=== PATIENT | female | born 1960 | race Caucasian/White ===

== ENCOUNTER 2017-05-31 09:06 | Outpatient (RCR) | payer OTHER ==
[~2017-05-31 09:06] MED LIST: AC325T PO; AZIT500T2 PO; CLON2TAB3 PO; DOXY100C2 PO; LEVO175T5 PO; LVT.15T PO; METO25TA PO
[2017-05-31 09:36] LABS: BASOPHILS % (AUTO) 0 % (0-10); EOSINOPHILS # (AUTO) 0.2 10^3/uL (0.0-0.3); EOSINOPHILS % (AUTO) 2 % (0-10); HEMATOCRIT 41 % (35-52); HEMOGLOBIN 13.5 G/DL (11.5-16.0); LYMPHOCYTES # (AUTO) 1.8 X 10^3 (1.0-4.0); LYMPHOCYTES % (AUTO) 26 % (12-44); MEAN CORPUSCULAR HEMOGLOBIN 29 PG (25-34); MEAN CORPUSCULAR HGB CONC 33 G/DL (32-36); MEAN CORPUSCULAR VOLUME 89 FL (80-99); MEAN PLATELET VOLUME 10.7 FL (7.4-10.4); MONOCYTES # (AUTO) 0.4 X 10^3 (0.0-1.0); MONOCYTES % (AUTO) 6 % (0-12); NEUTROPHILS # (AUTO) 4.6 X 10^3 (1.8-7.8); NEUTROPHILS % (AUTO) 66 % (42-75); PLATELET COUNT 254 10^3/uL (130-400); RED BLOOD COUNT 4.67 10^6/uL (4.35-5.85); RED CELL DISTRIBUTION WIDTH 13.1 % (10.0-14.5)
[2017-05-31 09:59] LABS: ALANINE AMINOTRANSFERASE 17 U/L (0-55); ALBUMIN 4.3 GM/DL (3.2-4.5); ALKALINE PHOSPHATASE 67 U/L (40-136); BILIRUBIN,TOTAL 0.5 MG/DL (0.1-1.0); BUN/CREATININE RATIO 24; CALCIUM 8.7 MG/DL (8.5-10.1); CARBON DIOXIDE 22 MMOL/L (21-32); CHLORIDE 108 MMOL/L (98-107); CREATININE SERUM 0.79 MG/DL (0.60-1.30); GFR ESTIMATED > 60; GLUCOSE 93 MG/DL (70-105); POTASSIUM 4.2 MMOL/L (3.6-5.0); SODIUM 141 MMOL/L (135-145)
== END 2017-08-29 | disposition home or self-care (01) ==
LOC: ONC 09:06
PROVIDERS: ATTEND Internal Medicine Hematology & Oncology
DX: Z08 Encounter for follow-up examination after completed treatment for malignant neoplasm (principal); Z85.3 Personal history of malignant neoplasm of breast; I10 Essential (primary) hypertension; E03.9 Hypothyroidism, unspecified; F41.9 Anxiety disorder, unspecified; G47.30 Sleep apnea, unspecified; K76.0 Fatty (change of) liver, not elsewhere classified; R10.31 Right lower quadrant pain; M25.551 Pain in right hip; E66.9 Obesity, unspecified; Z68.33 Body mass index [BMI] 33.0-33.9, adult; Z90.12 Acquired absence of left breast and nipple; Z98.82 Breast implant status; Z79.899 Other long term (current) drug therapy
CPT/HCPCS: 36415; 80053; 85025; 99214

== ENCOUNTER 2018-01-16 21:00 | Outpatient (CLI) | payer OTHER | END 2018-01-17 06:30 | disposition home or self-care (01) | LOC: SLEEP 21:00 | PROVIDERS: ATTEND Nurse Practitioner Family | DX: G47.33 Obstructive sleep apnea (adult) (pediatric) (principal); G47.50 Parasomnia, unspecified; G47.10 Hypersomnia, unspecified; R06.02 Shortness of breath; Z78.9 Other specified health status | CPT/HCPCS: 95811 ==

== ENCOUNTER → 2018-03-20 | Outpatient (CLI) | payer OTHER ==
[2018-03-20 09:30] LABS: BASOPHILS % (AUTO) 1 % (0-10); EOSINOPHILS # (AUTO) 0.2 10^3/uL (0.0-0.3); EOSINOPHILS % (AUTO) 3 % (0-10); HEMATOCRIT 42 % (35-52); HEMOGLOBIN 13.5 G/DL (11.5-16.0); LYMPHOCYTES # (AUTO) 1.6 X 10^3 (1.0-4.0); LYMPHOCYTES % (AUTO) 27 % (12-44); MEAN CORPUSCULAR HEMOGLOBIN 29 PG (25-34); MEAN CORPUSCULAR HGB CONC 32 G/DL (32-36); MEAN CORPUSCULAR VOLUME 88 FL (80-99); MEAN PLATELET VOLUME 11.1 FL (7.4-10.4); MONOCYTES # (AUTO) 0.4 X 10^3 (0.0-1.0); MONOCYTES % (AUTO) 7 % (0-12); NEUTROPHILS # (AUTO) 3.6 X 10^3 (1.8-7.8); NEUTROPHILS % (AUTO) 62 % (42-75); PLATELET COUNT 225 10^3/uL (130-400); RED BLOOD COUNT 4.74 10^6/uL (4.35-5.85); RED CELL DISTRIBUTION WIDTH 13.1 % (10.0-14.5); WHITE BLOOD COUNT 5.8 10^3/uL (4.3-11.0)
[2018-03-20 09:50] LABS: ALANINE AMINOTRANSFERASE 18 U/L (0-55); ALBUMIN 4.4 GM/DL (3.2-4.5); ALKALINE PHOSPHATASE 71 U/L (40-136); BILIRUBIN,TOTAL 0.7 MG/DL (0.1-1.0); BUN/CREATININE RATIO 16; CALCIUM 9.4 MG/DL (8.5-10.1); CARBON DIOXIDE 23 MMOL/L (21-32); CHLORIDE 107 MMOL/L (98-107); CREATININE SERUM 0.81 MG/DL (0.60-1.30); GFR ESTIMATED > 60; GLUCOSE 95 MG/DL (70-105); MAGNESIUM 2.5 MG/DL (1.8-2.4); PHOSPHORUS 3.5 MG/DL (2.3-4.7); POTASSIUM 4.1 MMOL/L (3.6-5.0); SODIUM 141 MMOL/L (135-145); TOTAL PROTEIN 7.4 GM/DL (6.4-8.2)
[2018-03-20 10:11] LABS: FREE T4 (FREE THYROXINE) 0.99 NG/DL (0.70-1.48)
== END ==
LOC: LAB 09:08
PROVIDERS: ATTEND Nurse Practitioner Family
DX: G47.10 Hypersomnia, unspecified (principal); G47.50 Parasomnia, unspecified; R06.02 Shortness of breath; E66.9 Obesity, unspecified; F41.9 Anxiety disorder, unspecified; F39 Unspecified mood [affective] disorder; G47.30 Sleep apnea, unspecified
CPT/HCPCS: 36415; 80053; 83735; 84100; 84439; 84443; 84481; 85025

== ENCOUNTER 2018-05-30 09:14 | Outpatient (RCR) | payer OTHER ==
[2018-05-29 09:40] LABS: BASOPHILS % (AUTO) 0 % (0-10); EOSINOPHILS # (AUTO) 0.2 10^3/uL (0.0-0.3); EOSINOPHILS % (AUTO) 3 % (0-10); HEMATOCRIT 40 % (35-52); HEMOGLOBIN 13.2 G/DL (11.5-16.0); LYMPHOCYTES # (AUTO) 1.7 X 10^3 (1.0-4.0); LYMPHOCYTES % (AUTO) 29 % (12-44); MEAN CORPUSCULAR HEMOGLOBIN 29 PG (25-34); MEAN CORPUSCULAR HGB CONC 33 G/DL (32-36); MEAN CORPUSCULAR VOLUME 88 FL (80-99); MEAN PLATELET VOLUME 10.7 FL (7.4-10.4); MONOCYTES # (AUTO) 0.4 X 10^3 (0.0-1.0); MONOCYTES % (AUTO) 6 % (0-12); NEUTROPHILS # (AUTO) 3.7 X 10^3 (1.8-7.8); NEUTROPHILS % (AUTO) 62 % (42-75); PLATELET COUNT 246 10^3/uL (130-400); RED CELL DISTRIBUTION WIDTH 13.4 % (10.0-14.5)
[2018-05-29 10:02] LABS: ALANINE AMINOTRANSFERASE 19 U/L (0-55); ALBUMIN 4.1 GM/DL (3.2-4.5); ALKALINE PHOSPHATASE 67 U/L (40-136); BILIRUBIN,TOTAL 0.7 MG/DL (0.1-1.0); BUN/CREATININE RATIO 22; CARBON DIOXIDE 19 MMOL/L (21-32); CHLORIDE 109 MMOL/L (98-107); CREATININE SERUM 0.89 MG/DL (0.60-1.30); GFR ESTIMATED > 60; GLUCOSE 172 MG/DL (70-105); POTASSIUM 3.9 MMOL/L (3.6-5.0); SODIUM 141 MMOL/L (135-145); TOTAL PROTEIN 7.3 GM/DL (6.4-8.2)
[2018-06-12] MEDS ORDERED: SERT100T8 PO (11:58)
[2018-06-12] MEDS ORDERED: LISI-552 PO (11:58)
[2018-06-12] MEDS ORDERED: LEVO150T6 PO (11:58)
[2018-06-13] MEDS ORDERED: HYDR-3816 PO (09:39)
[2018-06-13] MEDS ORDERED: morphine INJ 10 MG/ML 1ML (SYR OR VIAL) ONE (13:09)
== END 2018-08-27 | disposition home or self-care (01) ==
LOC: ONC 09:14
PROVIDERS: ATTEND Internal Medicine Hematology & Oncology
DX: Z08 Encounter for follow-up examination after completed treatment for malignant neoplasm (principal); Z85.3 Personal history of malignant neoplasm of breast; I10 Essential (primary) hypertension; E03.9 Hypothyroidism, unspecified; F41.9 Anxiety disorder, unspecified; G47.30 Sleep apnea, unspecified; Z90.12 Acquired absence of left breast and nipple; Z98.82 Breast implant status; Z79.899 Other long term (current) drug therapy
CPT/HCPCS: 36415; 80053; 85025; 99213

== ENCOUNTER 2018-06-12 06:11 | Outpatient (CLI) | payer OTHER ==
[~2018-06-12] VITALS: Ht 162.6 cm; Wt 88.9 kg
[2018-06-12] MEDS ORDERED: LEVO150T6 PO (11:58)
[2018-06-12] MEDS ORDERED: LISI-552 PO (11:58)
[2018-06-12] MEDS ORDERED: SERT100T8 PO (11:58)
[2018-06-13] MEDS ORDERED: HYDR-3816 PO (09:39)
== END 2018-06-12 11:59 ==
LOC: PREOP 06:11
PROVIDERS: ATTEND Surgery
DX: Z01.818 Encounter for other preprocedural examination (principal)

== ENCOUNTER 2018-06-13 09:29 | Day surgery (SDC) | payer OTHER ==
[~2018-06-13] VITALS: Ht 162.6 cm; Wt 88.9 kg
[~2018-06-13 09:29] MED LIST changes: +LEVO150T6 PO; +LISI-552 PO; +SERT100T8 PO
--- OUTSIDE RECORDS SUMMARY | 2018-06-13 09:32 | XMS REPORT | Clinical Summary ---
Author Author [facility] Organization [facility] Address Unknown Phone Unavailable Care Team Providers Care Manager Branch Name Role Phone Ervin Kitchen MD Unavailable Moises Duron MD Unavailable Unavailable Monty Perdomo MD PCP Renée Tellez MD Unavailable Quinton Petersen MD Unavailable Shruthi Morrow RN Unavailable Unavailable Source Comments Some departments are not documenting in the electronic medical record. If you do not see the information that you expected, contact Release of Information in the Health Information Management department at [phone] for further assistance in locating additional records.[facility] Allergies No Known Allergies Medications End Date Status Medication Sig Dispensed Refills Start Date Active levothyroxine (SYNTHROID) Take 150 mcg 0 150 mcg tablet by mouth daily. Active DULoxetine DR (CYMBALTA) Take 60 mg by 0 60 mg capsule mouth daily. Active metoprolol XL (TOPROL XL) Take 150 mg 0 50 mg tablet by mouth every morning. Active rOPINIRole (REQUIP) 1 mg Take 2 mg by 0 tablet mouth daily. Takes 2 tabs in the afternoon Active ergocalciferol (VITAMIN Take 50,000 0 D-2) 50,000 unit capsule Units by mouth every 7 days. Takes on Sundays Active DULoxetine DR (CYMBALTA) Take 1 Cap by 30 Cap 5 11/05/201 30 mg capsuleIndications: mouth daily. 3 Fibromyalgia Active Armodafinil (NUVIGIL) 150 Take 1 Tab by 30 Tab 5 06/05/201 mg tab mouth daily. 4 Active Problems Problem Noted Date Daytime hypersomnolence 02/20/2013 Overview: June 2010: MSLT mean latency of 11 minutes, 1 REM onset nap in the 5th nap Hypnopompic auditory and visual hallucinations, no cataplexy, no sleep paralysis L ast Assessment & Plan: -Consider repeat MSLT but due to financial reasons she declined -I discussed that aside from narcolepsy, severe depression could be contributing to her nightmares and other sensory phenomena at nighttime as well as her EDS/fatigue -Need to ensure adequate control of her ARY, requested download from [facility] today for review. May need a trial of auto-adjusting machine to determine ideal pressure. -Needs full face mask instead of nasal mask, she is wanting to possibly change DME companies and will find out which one her insurance will cover close to where she lives -modafinil seemed to work for short periods at higher doses, so I recommended Nuvigil 150 mg, start half a tablet, watch for KAPLAN. We discussed other SE as well as alternatives. Discount card given. Chronic fatigue 02/20/2013 ARY on CPAP 02/20/2013 Overview: 2007: AHI 26, LSat 80%, CPAP 9 cm H20, REMlat 248 minutes, CAITLIN 35 minutes, PLMi 30, 179 pounds 2010 Done on CPAP 12 cm H20 PLMi 59, PLM arousal index 14, AHI 5 with LSat 90% on CPAP 12 cm H20, stages N1 34%, N2 52%, N3 7%, REM 7%. Arousal index 62. DME: [facility] in [place], [place], last download Apr 2013 Last Assessment & Plan: -Will find out local provider that insurance will pay for supplies and let us know what that company is -Needs full face mask -May need trial of auto-PAP Restless legs syndrome (RLS) 02/20/2013 Overview: Intense crawling in her thighs that goes into her hips. Ferritin 80 in February, ropinerole 2 mg at 2 PM, occasionally will take another one vs ibuprofen 800 mg Breaks through slightly every night Last Assessment & Plan: -Continue ropinerole 2 mg in the afternoon for now -Reassess at follow up Memory loss 02/20/2013 Hypothyroidism 02/20/2013 Overview: Does not have thyroid Fibromyalgia 02/20/2013 Last Assessment & Plan: -Cymbalta greatly improve her symptoms and mood; however, due to financial reasons she is afraid she might not be able to afford it. -I provided her a potential discount option through the [employer] for patient assistance -Consider TCA or Lexapro if needs alternative Cervical stenosis of spinal canal 12/14/2012 Overview: Dr. Duron did surgery for cervical disc Postoperative state 12/14/2012 Immunizations Name Dates Previously Given Next Due Pneumococcal Vaccine 12/15/2012 (23-[facility] Adult) Family History Medical History Relation Name Comments Hypertension Father Stroke Father Cancer Mother Hypertension Mother Relation Name Status Comments Father Mother Social History Date Tobacco Use Types Packs/Day Years Used Never Smoker Smokeless Tobacco: Never Used Alcohol Use Drinks/Week oz/Week Comments No Sex Assigned at Date Recorded Not on file Industry Job Start Date Occupation Not on file Not on file Not on file Travel End Travel History Travel Start No recent travel history available. Last Filed Vital Signs Time Taken Vital Sign Reading 06/05/2013 3:57 PM [employer]FORMAN[employer] IM[employer]OVEMENT CONSULTANT Blood Pressure 126/80 06/05/2013 3:57 PM [employer]MAN[employer] IM[employer]OVEMENT CONSULTANT Pulse 75 02/20/2013 11:26 AM [employer]MAN[employer] IM[employer]OV[employer] CONSULTANT Temperature 36.8 C (98.2 F) 06/05/2013 12:25 PM [employer]MAN[employer] IM[employer]OVEMENT CONSULTANT Respiratory Rate 18 12/15/2012 3:26 PM CDT Oxygen Saturation 95% - Inhaled Oxygen - Concentration 06/05/2013 3:57 PM [employer]MAN[employer] IM[employer]OVEMENT CONSULTANT Weight 95.3 kg (210 lb) 06/05/2013 3:57 PM [employer]FORMANCE IMPROVEMENT CONSULTANT Height 165.1 cm (5' 5") 06/05/2013 3:57 PM [employer]FORMANCE IMPROVEMENT CONSULTANT Body Mass Index 34.95 Plan of Treatment Health Maintenance Due Date Last Done Comments HEPATITIS C SCREENING 1959 PHYSICAL (COMPREHENSIVE) 09/13/1966 EXAM HIV SCREENING 09/13/1974 DTAP/TDAP VACCINES (1 - 09/13/1977 Tdap) CERVICAL CANCER SCREENING 09/13/1989 BREAST CANCER SCREENING 1999 COLORECTAL CANCER 09/13/2009 SCREENING SHINGLES RECOMBINANT 09/13/2009 VACCINE (1 of 2) INFLUENZA VACCINE 11/16/2017 Results Not on filefrom Last 3 Months Insurance Payer Benefit Subscriber ID Type Phone Address Plan / Group CIGNA CIGNA NON xxxxxxxxxxx HMO PPO/EPO Advance Directives Patient has advance care planning documents, and code status on file. For more information, please contact: [facility] [address] [place] [address] Date Inactivated Comments Code Status Date Activated 12/15/2012 7:53 PM Full Code 12/14/2012 10:25 AM Provider has discussed Code Status No, discussion not w/Patient or Family? necessary based on Dx
--- OUTSIDE RECORDS SUMMARY | 2018-06-13 09:33 | XMS REPORT ---
Author Author OLIVIA ROSA [facility] Address [address] [place] [address] Care Team Providers Care Window Trimmer Apprentice Name Role Phone OLIVIA ROSA Unavailable PROBLEMS Type Condition ICD9-CM Code [id number] Code Onset Dates Condition Status SNOMED Code Problem Depression F32.9 Active 49053927 Problem Dysthymic disorder F34.1 Active 12974622 Problem Hypertension I10 Active 34428474 Problem S/P bilateral mastectomy Z90.13 Active 530117567 Problem IBS (irritable bowel syndrome) K58.9 Active 03311266 Problem Sleep apnea G47.30 Active 73371920 Problem Arthritis, lumbar spine M46.96 Active 245080372 Problem Restless leg G25.81 Active 54630331 Problem Acquired hypothyroidism E03.9 Active 257032092 Problem Anxiety F41.9 Active 18595523 Problem Chronic fatigue R53.82 Active 71391109 Problem Postoperative hypothyroidism E89.0 Active 00333500 ALLERGIES No Information ENCOUNTERS Encounter Location Date Diagnosis [place] [address] [place] [address]44- 6248 Jul, Acquired hypothyroidism E03.9 and Fatigue, unspecified type R53.83 [facility] [address] [place] [address] 10238- 5365 Jul, Postoperative hypothyroidism E89.0 [facility] [address] [place] [id number] [place] [address] 21294- 8279 Jul, Postoperative hypothyroidism E89.0 [facility] [address] [place] [address] 90353- 8314 Jun, [facility] [address] [place] [address] 18928- 2728 Jun, Acquired hypothyroidism E03.9 [place] [address] [place] [id number] [place] [address] 97097- 6286 08 Jun, 2017 Arthritis, lumbar spine M46.96 and Acquired hypothyroidism E03.9 [facility] [address] [place] [address] [id number] [place] [address] 75372- 8689 Jun, [facility] [id number] [place] [address] 22534- 2000 Jun, Acquired hypothyroidism E03.9 [facility] [address] [place] [id number] [place] [address] 42619- 5262 Mar, Acquired hypothyroidism E03.9 [facility] [address] [address] [id number] [place] [address] 38170- 5960 Mar, Acquired hypothyroidism E03.9 [facility] [id number] [place] [address] 50062- 3408 Mar, [facility] [id number] [place] [address] 50986- 6053 Nov, [facility] [address] [id number] [place] [address] 04112- 3723 Nov, Low vitamin B12 level E53.8 [facility] [address] [place] [id number] [place] [address] 87160- 8373 Nov, Low vitamin B12 level E53.8 [facility] [address] [id number] [place] [address] 21135- 3914 Nov, Chronic fatigue R53.82 ; Restless leg G25.81 and Postoperative hypothyroidism E89.0 [facility] [address] [place] [id number] [place] [address] 86999- 1826 Nov, [facility] [address] [id number] [place] [address] 64892- 2279 Oct, [facility] [address] [place] [id number] [place] [address] 71571- 3169 Oct, Acquired hypothyroidism E03.9 [facility] [id number] [place] [address] 61750- 5495 Oct, [place] [address] [place] [id number] [place] [address] 39879- 8606 Jun, RLQ abdominal pain R10.31 [place] [address] [place] [phone]- 6364 Jun, Sleep apnea G47.30 ; Rash R21 ; RLQ abdominal pain R10.31 and Postoperative hypothyroidism E89.0 [place] [address] 70711- 6946 May, Acquired hypothyroidism E03.9 [place] [address] 536150- 2456 May, [place] [address] 41809- 8302 May, Acquired hypothyroidism E03.9 [place] [address] 37760- 9350 Mar, Acquired hypothyroidism E03.9 [place] [address] [place] [id number] [place] [address] 87500- 4710 Mar, Hypertension I10 ; Acquired hypothyroidism E03.9 ; Depression F32.9 ; Anxiety F41.9 ; Sleep apnea G47.30 ; Dysuria R30.0 and Other fatigue R53.83 [place] [address] [place] [id number] [place] [address] 46651- 1199 Feb, [place] [address] 77958- 5565 August, Dysthymic disorder F34.1 ; Depression F32.9 and Sleep apnea G47.30 [place] [address] 40788- 5631 Jun, Dysthymic disorder F34.1 [place] [address] [place] [id number] [place] [address] 13125- 2756 Jun, Dysthymic disorder F34.1 [facility] [address] [facility] [id number] [address] Jun, Anxiety F41.9 ; Depression F32.9 and Sleep apnea G47.30 [facility] [address] [facility] [id number], [place] [address] 8187 Jun, Flank pain R10.9 ; Hematuria R31.9 ; Depression F32.9 ; Hypertension I10 and Sleep apnea G47.30 [facility] [address] [facility] [id number], [place] [address] Jun, Dysthymic disorder F34.1 IMMUNIZATIONS No Known Immunizations SOCIAL HISTORY Never Assessed REASON FOR VISIT Lab PLAN OF CARE VITAL SIGNS MEDICATIONS Unknown Medications RESULTS No Results PROCEDURES No Known procedures INSTRUCTIONS MEDICATIONS ADMINISTERED No Known Medications MEDICAL (GENERAL) HISTORY Type Description Date Medical History hypertension Medical History thyroid disease; pt has had thyroidectomy Medical History depression/anxiety Medical History hx of breast cancer/double mastectomy/chemotherapy Medical History fibromyalgia Medical History ruptured disk in cervical region; had surgery at Medical History IBS Surgical History thyroidectomy Surgical History cervical disc repair Surgical History hysterectomy Surgical History double mastectomy Surgical History multiple breast reconstructive surgery Surgical History colonoscopy 05/2015 Hospitalization History multiple hospitalizations r/t cancer and surgeries
--- OUTSIDE RECORDS SUMMARY | 2018-06-13 09:33 | XMS REPORT ---
Author Author ANGELLA ORELLANA [facility] Address [address] [place] [address] Care Team Providers Care Confectionery Laboratory Manager Name Role Phone ANGELLA ORELLANA Unavailable PROBLEMS Type Condition ICD9-CM Code [id number] Code Onset Dates Condition Status SNOMED Code Problem Depression F32.9 Active 52883987 Problem Dysthymic disorder F34.1 Active 49259223 Problem Hypertension I10 Active 15430454 Problem S/P bilateral mastectomy Z90.13 Active 939830195 Problem IBS (irritable bowel syndrome) K58.9 Active 77601798 Problem Sleep apnea G47.30 Active 60040663 Problem Arthritis, lumbar spine M46.96 Active 563585222 Problem Restless leg G25.81 Active 36132302 Problem Acquired hypothyroidism E03.9 Active 401673829 Problem Anxiety F41.9 Active 16982595 Problem Chronic fatigue R53.82 Active 41325182 Problem Postoperative hypothyroidism E89.0 Active 19589457 ALLERGIES No Information ENCOUNTERS Encounter Location Date Diagnosis [place] [address] [place] [id number] [place] [address] 83228- 4459 Nov, Acquired hypothyroidism E03.9 [place] [address] [place] [id number] [place] [address] 04392- 7136 Jul, Acquired hypothyroidism E03.9 and Fatigue, unspecified type R53.83 [place] [address] [place] [address] 12749- 0128 Jul, Postoperative hypothyroidism E89.0 [place] [address] [place] [id number] [place] [address] 28895- 7088 Jul, Postoperative hypothyroidism E89.0 [place] [address] [place] [id number] [place] [address] 14791- 1421 Jun, [place] [address] [place] [id number] [place] [address] 55217- 3611 Jun, Acquired hypothyroidism E03.9 [facility] [address] [place] [id number] [place] [address] 22081- 4928 Jun, Arthritis, lumbar spine M46.96 and Acquired hypothyroidism E03.9 [facility] [address] [place] [id number] [place] [address] 65140- 9523 Jun, [facility] [address] 25953- 4539 Jun, Acquired hypothyroidism E03.9 [facility] [address] 82605- 7643 Mar, Acquired hypothyroidism E03.9 [facility] [address] [place] [id number] [place] [address] 56148- 1223 Mar, Acquired hypothyroidism E03.9 [facility] [address] 44583- 1864 Mar, [facility] [address] [place] [id number] [place] [address] 03600- 5566 Nov, [facility] [address] [place] [id number] [place] [address] 69666- 2198 Nov, Low vitamin B12 level E53.8 [facility] [address] [place] [id number] [place] [address] 15202- 9277 Nov, Low vitamin B12 level E53.8 [facility] [address] [place] [id number] [place] [address] 57683- 2205 Nov, Chronic fatigue R53.82 ; Restless leg G25.81 and Postoperative hypothyroidism E89.0 [facility] [address] [place] [id number] [place] [address] 38159- 2255 Nov, [facility] [address] [place] [id number] [place] [address] 13652- 7711 Oct, [facility] [address] [place] [address]- 8250 Oct, Acquired hypothyroidism E03.9 [place] [address] 79520- 4341 Oct, [facility] [address] [place] [id number]- 8849 Jun, RLQ abdominal pain R10.31 [facility] [address] 60896- 9959 Jun, Sleep apnea G47.30 ; Rash R21 ; RLQ abdominal pain R10.31 and Postoperative hypothyroidism E89.0 [place] [address] 36784- 1457 May, Acquired hypothyroidism E03.9 [place] [address] 62582- 2909 May, [place] [address] 40563- 9043 May, Acquired hypothyroidism E03.9 [place] [address] 44645- 1714 Mar, Acquired hypothyroidism E03.9 [place] [address] 01546- 2492 Mar, Hypertension I10 ; Acquired hypothyroidism E03.9 ; Depression F32.9 ; Anxiety F41.9 ; Sleep apnea G47.30 ; Dysuria R30.0 and Other fatigue R53.83 [place] [address] [place] [id number] [place] [address] 61843- 0714 Feb, [place] [address] [place] [id number]- 4633 August, Dysthymic disorder F34.1 ; Depression F32.9 and Sleep apnea G47.30 [place] [address] 64500- 4514 Jun, Dysthymic disorder F34.1 [facility] [address] [place] [id number] [address]- 6222 Jun, Dysthymic disorder F34.1 [facility] [address] [address]- 2491 Jun, Anxiety F41.9 ; Depression F32.9 and Sleep apnea G47.30 [place] [address] [place] [address] 28926- 6416 Jun, Flank pain R10.9 ; Hematuria R31.9 ; Depression F32.9 ; Hypertension I10 and Sleep apnea G47.30 [place] [address] [address]- 3743 Jun, Dysthymic disorder F34.1 IMMUNIZATIONS No Known Immunizations SOCIAL HISTORY Never Assessed REASON FOR VISIT Medication question PLAN OF CARE VITAL SIGNS MEDICATIONS Unknown Medications RESULTS No Results PROCEDURES No Known procedures INSTRUCTIONS MEDICATIONS ADMINISTERED No Known Medications MEDICAL (GENERAL) HISTORY Type Description Date Medical History hypertension Medical History thyroid disease; pt has had thyroidectomy Medical History depression/anxiety Medical History hx of breast cancer/double mastectomy/chemotherapy Medical History fibromyalgia Medical History ruptured disk in cervical region; had surgery at [facility] Medical History IBS Surgical History thyroidectomy Surgical History cervical disc repair Surgical History hysterectomy Surgical History double mastectomy Surgical History multiple breast reconstructive surgery Surgical History colonoscopy 05/2015 Hospitalization History multiple hospitalizations r/t cancer and surgeries
--- OUTSIDE RECORDS SUMMARY | 2018-06-13 09:33 | XMS REPORT ---
Author Author ANGELLA ORELLANA [facility] Address [address] [place] [address] Care Team Providers Care Outdoor Illuminating Engineer Name Role Phone ANGELLA ORELLANA Unavailable PROBLEMS Type Condition ICD9-CM Code QNC68-OJ Code Onset Dates Condition Status SNOMED Code Problem Depression F32.9 Active 52987874 Problem Dysthymic disorder F34.1 Active 58622574 Problem Hypertension I10 Active 40530246 Problem S/P bilateral mastectomy Z90.13 Active 524246050 Problem IBS (irritable bowel syndrome) K58.9 Active 56424257 Problem Sleep apnea G47.30 Active 04685806 Problem Arthritis, lumbar spine M46.96 Active 467681449 Problem Restless leg G25.81 Active 07416914 Problem Acquired hypothyroidism E03.9 Active 326697495 Problem Anxiety F41.9 Active 47569610 Problem Chronic fatigue R53.82 Active 28142749 Problem Postoperative hypothyroidism E89.0 Active 95387968 ALLERGIES No Information ENCOUNTERS Encounter Location Date Diagnosis [place] [address] [place] [address] 64580- 6849 Jul, Acquired hypothyroidism E03.9 and Fatigue, unspecified type R53.83 [place] [address] [place] [id number] [place] [address] 12085- 3126 Jul, Postoperative hypothyroidism E89.0 [place] [address] [place] [id number] [place] [address] 61552- 2488 Jul, Postoperative hypothyroidism E89.0 [place] [address] [place] [id number] [place] [address] 66353- 2880 Jun, [place] [address] [place] [id number] [place] [address] 57025- 8914 Jun, Acquired hypothyroidism E03.9 [place] [address] [place] [id number] [place] [address] 66015- 3308 08 Jun, 2017 Arthritis, lumbar spine M46.96 and Acquired hypothyroidism E03.9 [facility] [address] [place] [id number] [place] [address] 66632- 8329 Jun, [facility] [address] [place] [address] [id number] [place] [address] 35521- 5013 Jun, Acquired hypothyroidism E03.9 [facility] [address] [place] [id number] [place] [address] 39332- 2460 Mar, Acquired hypothyroidism E03.9 [facility] [address] 56343- 0225 Mar, Acquired hypothyroidism E03.9 [facility] [address] [place] [id number] [place] [address] 88665- 3207 Mar, [facility] [address] 55889- 9927 Nov, [facility] [address] [place] [id number] [place] [address] 64568- 3848 Nov, Low vitamin B12 level E53.8 [facility] [address] [place] [id number] [place] [address] 19062- 2775 Nov, Low vitamin B12 level E53.8 [facility] [address] [place] [id number] [place] [address] 74845- 8514 Nov, Chronic fatigue R53.82 ; Restless leg G25.81 and Postoperative hypothyroidism E89.0 [facility] [address] [place] [address] [id number] [place] [address] 43239- 0946 Nov, [facility] [address] [place] [id number] [place] [address] 44523- 3612 Oct, [facility] [address] [place] [id number] [place] [address] 62966- 0566 Oct, Acquired hypothyroidism E03.9 [facility] [address] [place] [address]- 6503 Oct, [place] [address] 09485- 2237 Jun, RLQ abdominal pain R10.31 [place] [address] 65659- 5621 Jun, Sleep apnea G47.30 ; Rash R21 ; RLQ abdominal pain R10.31 and Postoperative hypothyroidism E89.0 [place] [address] 33486- 0842 May, Acquired hypothyroidism E03.9 [place] [address] 15540- 4879 May, [place] [address] 71626- 3100 May, Acquired hypothyroidism E03.9 [place] [address] 51782- 6220 Mar, Acquired hypothyroidism E03.9 [place] [address] 54426- 4895 Mar, Hypertension I10 ; Acquired hypothyroidism E03.9 ; Depression F32.9 ; Anxiety F41.9 ; Sleep apnea G47.30 ; Dysuria R30.0 and Other fatigue R53.83 [place] [address] [place] [id number] [place] [address] 68719- 3803 Feb, [place] [address] 27774- 0466 August, Dysthymic disorder F34.1 ; Depression F32.9 and Sleep apnea G47.30 [place] [address] 12449- 6232 Jun, Dysthymic disorder F34.1 [place] [address] [place] [id number] [place] [address] 36011- 6896 Jun, Dysthymic disorder F34.1 [facility] [address] [facility] [id number] [address] 8857 Jun, Anxiety F41.9 ; Depression F32.9 and Sleep apnea G47.30 [facility] [address] [facility] [id number] [address] 5849 Jun, Flank pain R10.9 ; Hematuria R31.9 ; Depression F32.9 ; Hypertension I10 and Sleep apnea G47.30 [facility] [address] [facility] [id number], [place] [address]- 6812 Jun, Dysthymic disorder F34.1 IMMUNIZATIONS No Known Immunizations SOCIAL HISTORY Never Assessed REASON FOR VISIT Lab (walk-in) PLAN OF CARE Activity Details Future/Pending Procedure ROUTINE VENIPUNCTURE VITAL SIGNS MEDICATIONS Unknown Medications RESULTS Name Result Date Reference Range TSH w/ FREE T4 2017-08-05 TSH 5.00 0.40-4.50 T4, FREE 1.3 0.8-1.8 PROCEDURES Procedure Date Ordered Result Body Site LAB NOT BILLED BY [facility] August 05, 2017 VENIPUNCT, ROUTINE* August 05, 2017 INSTRUCTIONS MEDICATIONS ADMINISTERED No Known Medications MEDICAL [...]
--- OUTSIDE RECORDS SUMMARY | 2018-06-13 09:33 | XMS REPORT ---
Author Author ANGELLA ORELLANA [facility] Address [address] [place] [address] Care Team Providers Care Manager Water Wastewater Name Role Phone ANGELLA ORELLANA Unavailable PROBLEMS Type Condition ICD9-CM Code [id number] Code Onset Dates Condition Status SNOMED Code Problem Depression F32.9 Active 08843515 Problem Dysthymic disorder F34.1 Active 68587074 Problem Hypertension I10 Active 36133952 Problem S/P bilateral mastectomy Z90.13 Active 019531917 Problem IBS (irritable bowel syndrome) K58.9 Active 55745212 Problem Sleep apnea G47.30 Active 10186486 Problem Arthritis, lumbar spine M46.96 Active 079680702 Problem Restless leg G25.81 Active 03547257 Problem Acquired hypothyroidism E03.9 Active 882069291 Problem Anxiety F41.9 Active 59884515 Problem Chronic fatigue R53.82 Active 22434164 Problem Postoperative hypothyroidism E89.0 Active 33251728 ALLERGIES No Information ENCOUNTERS Encounter Location Date Diagnosis [place] [address] [place] [address] 19694- 4573 Jul, Acquired hypothyroidism E03.9 and Fatigue, unspecified type R53.83 [place] [address] [place] [id number] [place] [address] 00328- 5643 Jul, Postoperative hypothyroidism E89.0 [place] [address] [place] [id number] [place] [address] 44243- 1516 Jul, Postoperative hypothyroidism E89.0 [place] [address] [place] [id number] [place] [address] 95780- 2819 Jun, [place] [address] [place] [id number] [place] [address] 61493- 5075 Jun, Acquired hypothyroidism E03.9 [place] [address] [place] [id number] [place] [address] 92875- 1059 08 Jun, 2017 Arthritis, lumbar spine M46.96 and Acquired hypothyroidism E03.9 [facility] [address] [place] [id number] [place] [address] 07452- 5102 Jun, [facility] [address] [place] [id number] [place] [address] 64392- 0684 Jun, Acquired hypothyroidism E03.9 [facility] [address] [place] [id number] [place] [address] 46978- 3411 Mar, Acquired hypothyroidism E03.9 [facility] [address] 54544- 8608 Mar, Acquired hypothyroidism E03.9 [facility] [address] [place] [id number] [place] [address] 63422- 1727 Mar, [facility] [address] 52767- 3934 Nov, [facility] [address] [place] [id number] [place] [address] 44888- 8041 Nov, Low vitamin B12 level E53.8 [facility] [address] [place] [id number] [place] [address] 01166- 3413 Nov, Low vitamin B12 level E53.8 [facility] [address] [place] [id number] [place] [address] 89813- 7852 Nov, Chronic fatigue R53.82 ; Restless leg G25.81 and Postoperative hypothyroidism E89.0 [facility] [address] [place] [id number] [place] [address] 68937- 9127 Nov, [facility] [address] [place] [id number] [place] [address] 87848- 0246 Oct, [facility] [address] [place] [id number] [place] [address] 90956- 2096 Oct, Acquired hypothyroidism E03.9 [facility] [address] [place] [address]- 9408 Oct, [place] [address] 99454- 4914 Jun, RLQ abdominal pain R10.31 [place] [address] 65425- 9843 Jun, Sleep apnea G47.30 ; Rash R21 ; RLQ abdominal pain R10.31 and Postoperative hypothyroidism E89.0 [place] [address] 61722- 3361 May, Acquired hypothyroidism E03.9 [place] [address] 34787- 6158 May, [place] [address] 64433- 0828 May, Acquired hypothyroidism E03.9 [place] [address] 52979- 7606 Mar, Acquired hypothyroidism E03.9 [place] [address] 37274- 4825 Mar, Hypertension I10 ; Acquired hypothyroidism E03.9 ; Depression F32.9 ; Anxiety F41.9 ; Sleep apnea G47.30 ; Dysuria R30.0 and Other fatigue R53.83 [place] [address] [place] [id number] [place] [address] 01352- 1641 Feb, [place] [address] 16905- 9377 August, Dysthymic disorder F34.1 ; Depression F32.9 and Sleep apnea G47.30 [place] [address] 57831- 2160 Jun, Dysthymic disorder F34.1 [place] [address] [place] [id number] [place] [address] 16225- 9744 Jun, Dysthymic disorder F34.1 [facility] [address] [facility] [id number], [place] [address]- 2985 Jun, Anxiety F41.9 ; Depression F32.9 and Sleep apnea G47.30 [facility] [address] [facility] [id number], [place] [address]- 7907 Jun, Flank pain R10.9 ; Hematuria R31.9 ; Depression F32.9 ; Hypertension I10 and Sleep apnea G47.30 [facility] [address] [facility] [id number], [place] [address]- 2017 Jun, Dysthymic disorder F34.1 IMMUNIZATIONS No Known Immunizations SOCIAL HISTORY Never Assessed REASON FOR VISIT Lab (walk-in) PLAN OF CARE VITAL SIGNS MEDICATIONS Unknown Medications RESULTS Name Result Date Reference Range TSH 2017-06-17 TSH 10.18 0.40-4.50 T4 FREE 2017-06-17 T4, FREE 1.0 0.8-1.8 PROCEDURES Procedure Date Ordered Result Body Site LAB NOT BILLED BY [facility] June 17, 2017 VENIPUNCT, ROUTINE* June 17, 2017 INSTRUCTIONS MEDICATIONS ADMINISTERED No Known Medications [...]
--- OUTSIDE RECORDS SUMMARY | 2018-06-13 09:33 | XMS REPORT ---
Author Author ANGELLA ORELLANA [facility] Address [address] [place] [address] Care Team Providers Care Hand Mounter Name Role Phone ANGELLA ORELLANA Unavailable PROBLEMS Type Condition ICD9-CM Code EWP34-ME Code Onset Dates Condition Status SNOMED Code Problem Depression F32.9 Active 07480995 Problem Dysthymic disorder F34.1 Active 32363916 Problem Hypertension I10 Active 66102837 Problem S/P bilateral mastectomy Z90.13 Active 202890516 Problem IBS (irritable bowel syndrome) K58.9 Active 42737288 Problem Sleep apnea G47.30 Active 59571679 Problem Arthritis, lumbar spine M46.96 Active 237553751 Problem Restless leg G25.81 Active 20083395 Problem Acquired hypothyroidism E03.9 Active 023277446 Problem Anxiety F41.9 Active 76608117 Problem Chronic fatigue R53.82 Active 73634116 Problem Postoperative hypothyroidism E89.0 Active 22138450 ALLERGIES No Information ENCOUNTERS Encounter Location Date Diagnosis [place] [address] [place] [address] 43403- 1122 Jul, Acquired hypothyroidism E03.9 and Fatigue, unspecified type R53.83 [place] [address] [place] [id number] [place] [address] 51107- 9889 Jul, Postoperative hypothyroidism E89.0 [place] [address] [place] [id number] [place] [address] 92115- 3277 Jul, Postoperative hypothyroidism E89.0 [place] [address] [place] [id number] [place] [address] 44423- 7653 Jun, [place] [address] [place] [id number] [place] [address] 48111- 0943 Jun, Acquired hypothyroidism E03.9 [place] [address] [place] [id number] [place] [address] 48415- 5991 08 Jun, 2017 Arthritis, lumbar spine M46.96 and Acquired hypothyroidism E03.9 [facility] [address] [place] [id number] [place] [address] 39982- 8010 Jun, [facility] [address] [place] [id number] [place] [address] 28571- 2298 Jun, Acquired hypothyroidism E03.9 [facility] [address] [place] [id number] [place] [address] 54478- 7883 Mar, Acquired hypothyroidism E03.9 [facility] [address] 96358- 7215 Mar, Acquired hypothyroidism E03.9 [facility] [address] [place] [id number] [place] [address] 41388- 0947 Mar, [facility] [address] 67061- 3266 Nov, [facility] [address] [place] [id number] [place] [address] 03017- 1143 Nov, Low vitamin B12 level E53.8 [facility] [address] [place] [id number] [place] [address] 18827- 7312 Nov, Low vitamin B12 level E53.8 [facility] [address] [place] [id number] [place] [address] 94377- 4432 Nov, Chronic fatigue R53.82 ; Restless leg G25.81 and Postoperative hypothyroidism E89.0 [facility] [address] [place] [id number] [place] [address] 10487- 1552 Nov, [facility] [address] [place] [id number] [place] [address] 04402- 4156 Oct, [facility] [address] [place] [id number] [place] [address] 59957- 4196 Oct, Acquired hypothyroidism E03.9 [facility] [address] [place] [address]- 4259 Oct, [place] [address] 46006- 3724 Jun, RLQ abdominal pain R10.31 [place] [address] 86948- 5242 Jun, Sleep apnea G47.30 ; Rash R21 ; RLQ abdominal pain R10.31 and Postoperative hypothyroidism E89.0 [place] [address] 80618- 0770 May, Acquired hypothyroidism E03.9 [place] [address] 07702- 8596 May, [place] [address] 00576- 6454 May, Acquired hypothyroidism E03.9 [place] [address] 71647- 6297 Mar, Acquired hypothyroidism E03.9 [place] [address] 08045- 1623 Mar, Hypertension I10 ; Acquired hypothyroidism E03.9 ; Depression F32.9 ; Anxiety F41.9 ; Sleep apnea G47.30 ; Dysuria R30.0 and Other fatigue R53.83 [place] [address] [place] [id number] [place] [address] 30009- 8917 Feb, [place] [address] 52593- 9984 August, Dysthymic disorder F34.1 ; Depression F32.9 and Sleep apnea G47.30 [place] [address] 96213- 3517 Jun, Dysthymic disorder F34.1 [place] [address] [place] [id number] [place] [address] 08168- 7327 Jun, Dysthymic disorder F34.1 [facility] [address] [facility] [id number] [address]- 8731 Jun, Anxiety F41.9 ; Depression F32.9 and Sleep apnea G47.30 [facility] [address] [id number] [address]- 9902 Jun, Flank pain R10.9 ; Hematuria R31.9 ; Depression F32.9 ; Hypertension I10 and Sleep apnea G47.30 [facility] [address] [id number] [address]- 3741 Jun, Dysthymic disorder F34.1 IMMUNIZATIONS No Known Immunizations SOCIAL HISTORY Never Assessed REASON FOR VISIT Referral Request PLAN OF CARE VITAL SIGNS MEDICATIONS Unknown [...]
--- OUTSIDE RECORDS SUMMARY | 2018-06-13 09:33 | XMS REPORT ---
Author Author ANGELLA ORELLANA Organization [facility] [place] Address [address] [place] [address] Care Team Providers Care Truck Body Builder Apprentice Name Role Phone ANGELLA ORELLANA Unavailable PROBLEMS Type Condition ICD9-CM Code DIZ80-JE Code Onset Dates Condition Status SNOMED Code Problem Depression F32.9 Active 21354952 Problem Dysthymic disorder F34.1 Active 09134614 Problem Hypertension I10 Active 57648565 Problem S/P bilateral mastectomy Z90.13 Active 365839777 Problem IBS (irritable bowel syndrome) K58.9 Active 11264991 Problem Sleep apnea G47.30 Active 77166407 Problem Arthritis, lumbar spine M46.96 Active 911610111 Problem Restless leg G25.81 Active 88170704 Problem Acquired hypothyroidism E03.9 Active 767661854 Problem Anxiety F41.9 Active 73262588 Problem Chronic fatigue R53.82 Active 64508325 Problem Postoperative hypothyroidism E89.0 Active 01207080 ALLERGIES No Information ENCOUNTERS Encounter Location Date Diagnosis [place] [address] [place] [id number] [place] [address] 27651- 9302 Nov, Acquired hypothyroidism E03.9 [place] [address] [place] [id number] [place] [address] 69382- 6987 Jul, Acquired hypothyroidism E03.9 and Fatigue, unspecified type R53.83 [place] [address] [place] [address] 53402- 2971 Jul, Postoperative hypothyroidism E89.0 [place] [address] [place] [id number] [place] [address] 92845- 9895 Jul, Postoperative hypothyroidism E89.0 [place] [address] [place] [id number] [place] [address] 81760- 9438 Jun, [place] [address] [place] [id number] [place] [address] 50736- 4307 Jun, Acquired hypothyroidism E03.9 [facility] [place] [address] [place] [id number] [place] [address] 36729- 4587 Jun, Arthritis, lumbar spine M46.96 and Acquired hypothyroidism E03.9 [facility] [place] [address] [place] [id number] [place] [address] 31610- 1026 Jun, [facility] [place] [address] 36438- 5276 Jun, Acquired hypothyroidism E03.9 [facility] [place] [address] 63056- 7648 Mar, Acquired hypothyroidism E03.9 [facility] [place] [address] [place] [id number] [place] [address] 26735- 5688 Mar, Acquired hypothyroidism E03.9 [facility] [place] [address] 70099- 0894 Mar, [facility] [place] [address] [place] [id number] [place] [address] 28192- 8637 Nov, [facility] [place] [address] [place] [id number] [place] [address] 50680- 0032 Nov, Low vitamin B12 level E53.8 [facility] [place] [address] [place] [id number] [place] [address] 74854- 2492 Nov, Low vitamin B12 level E53.8 [facility] [place] [address] [place] [id number] [place] [address] 76463- 1425 Nov, Chronic fatigue R53.82 ; Restless leg G25.81 and Postoperative hypothyroidism E89.0 [facility] [place] [address] [place] [id number] [place] [address] 98787- 4970 Nov, [facility] [place] [address] [place] [id number] [place] [address] 31893- 0033 Oct, [facility] [place] [address] [place] [address]- 2095 Oct, Acquired hypothyroidism E03.9 [place] [address] 40610- 3038 Oct, [facility] [place] [address] [place] [id number]- 3075 Jun, RLQ abdominal pain R10.31 [facility] [place] [address] 70709- 8218 Jun, Sleep apnea G47.30 ; Rash R21 ; RLQ abdominal pain R10.31 and Postoperative hypothyroidism E89.0 [place] [address] 90450- 0303 May, Acquired hypothyroidism E03.9 [place] [address] 11612- 2826 May, [place] [address] 45491- 8108 May, Acquired hypothyroidism E03.9 [place] [address] 00009- 4300 Mar, Acquired hypothyroidism E03.9 [place] [address] 79291- 3431 Mar, Hypertension I10 ; Acquired hypothyroidism E03.9 ; Depression F32.9 ; Anxiety F41.9 ; Sleep apnea G47.30 ; Dysuria R30.0 and Other fatigue R53.83 [place] [address] [place] [id number] [place] [address] 67523- 8550 Feb, [place] [address] [place] [id number]- 8963 August, Dysthymic disorder F34.1 ; Depression F32.9 and Sleep apnea G47.30 [place] [address] 14775- 4819 Jun, Dysthymic disorder F34.1 [facility] [place] [address] [id number] [address]- 9465 Jun, Dysthymic disorder F34.1 [facility] [place] [address] [id number] [address]- 4460 Jun, Anxiety F41.9 ; Depression F32.9 and Sleep apnea G47.30 [place] [address] [place] [address] 32720- 1683 Jun, Flank pain R10.9 ; Hematuria R31.9 ; Depression F32.9 ; Hypertension I10 and Sleep apnea G47.30 [place] [address] [address]- 8486 Jun, Dysthymic disorder F34.1 IMMUNIZATIONS No Known Immunizations SOCIAL HISTORY Never Assessed REASON FOR VISIT Lab results/Referral Request PLAN OF CARE VITAL SIGNS MEDICATIONS Medication Instructions Dosage Frequency Start Date End Date Duration Status Synthroid 150 MCG Orally Once a day 1 tablet on an empty stomach in the morning 24h Nov, 30 days Active RESULTS No Results PROCEDURES No Known procedures [...]
--- OUTSIDE RECORDS SUMMARY | 2018-06-13 09:34 | XMS REPORT ---
Author Author ANGELLA ORELLANA [facility] Address [address] [place] [address] Care Team Providers Care Leaf Stripper Name Role Phone ANGELLA ORELLANA Unavailable PROBLEMS Type Condition ICD9-CM Code [id number] Code Onset Dates Condition Status SNOMED Code Problem Sleep apnea G47.30 Active 65238459 Problem Hypertension I10 Active 20596660 Problem Depression F32.9 Active 01541236 Problem IBS (irritable bowel syndrome) K58.9 Active 37332358 Problem Restless leg G25.81 Active 51838907 Problem Chronic fatigue R53.82 Active 75311882 Problem Anxiety F41.9 Active 11849187 Problem Dysthymic disorder F34.1 Active 54344505 Problem Postoperative hypothyroidism E89.0 Active 24786154 Problem Acquired hypothyroidism E03.9 Active 559151430 ALLERGIES Unknown Allergies SOCIAL HISTORY No smoking Hx information available PLAN OF CARE VITAL SIGNS MEDICATIONS Unknown Medications RESULTS Name Result Date Reference Range TSH 2016-05-26 TSH 0.054 0.450-4.500 PROCEDURES Procedure Date Ordered Related Diagnosis Body Site ASSAY THYROID STIM HORMONE May 26, 2016 VENIPUNCT, ROUTINE* May 26, 2016 IMMUNIZATIONS No Known Immunizations
--- OUTSIDE RECORDS SUMMARY | 2018-06-13 09:34 | XMS REPORT ---
Author Author ANGELLA ORELLANA [facility] Address [address] [place] [address] Care Team Providers Care Paper Inspector Name Role Phone ANGELLA ORELLANA Unavailable PROBLEMS Type Condition ICD9-CM Code [id number] Code Onset Dates Condition Status SNOMED Code Problem Depression F32.9 Active 63392529 Problem Dysthymic disorder F34.1 Active 95979552 Problem Hypertension I10 Active 57629339 Problem S/P bilateral mastectomy Z90.13 Active 050354108 Problem IBS (irritable bowel syndrome) K58.9 Active 01377062 Problem Sleep apnea G47.30 Active 51336689 Problem Arthritis, lumbar spine M46.96 Active 678444850 Problem Restless leg G25.81 Active 76960651 Problem Acquired hypothyroidism E03.9 Active 471972590 Problem Anxiety F41.9 Active 40460226 Problem Chronic fatigue R53.82 Active 82026880 Problem Postoperative hypothyroidism E89.0 Active 38112363 ALLERGIES No Information ENCOUNTERS Encounter Location Date Diagnosis [place] [id number] [place] [address] 45840- 5173 Jul, Acquired hypothyroidism E03.9 and Fatigue, unspecified type R53.83 [place] [address] [place] [id number] [place] [address] 54371- 4116 Jul, Postoperative hypothyroidism E89.0 [place] [address] [place] [id number] [place] [address] 39888- 2636 Jul, Postoperative hypothyroidism E89.0 [place] [address] [place] [id number] [place] [address] 96112- 1322 Jun, [place] [address] [place] [id number] [place] [address] 02016- 1395 Jun, Acquired hypothyroidism E03.9 [place] [address] [place] [id number] [place] [address] 54574- 0592 08 Jun, 2017 Arthritis, lumbar spine M46.96 and Acquired hypothyroidism E03.9 [facility] [address] [address] [id number] [place] [address] 11931- 4766 Jun, [facility] [address] [address] [id number] [place] [address] 36508- 0457 Jun, Acquired hypothyroidism E03.9 [facility] [address] [address] [id number] [place] [address] 93689- 1277 Mar, Acquired hypothyroidism E03.9 [facility] [address] 99618- 8617 Mar, Acquired hypothyroidism E03.9 [facility] [address] [place] [address] [id number] [place] [address] 03464- 2090 Mar, [facility] [address] 73513- 4746 Nov, [facility] [address] [place] [id number] [place] [address] 89121- 6525 Nov, Low vitamin B12 level E53.8 [facility] [address] [id number] [place] [address] 50970- 2008 Nov, Low vitamin B12 level E53.8 [facility] [address] [id number] [place] [address] 80039- 1290 Nov, Chronic fatigue R53.82 ; Restless leg G25.81 and Postoperative hypothyroidism E89.0 [facility] [address] [id number] [place] [address] 92143- 9762 Nov, [facility] [address] [place] [id number] [place] [address] 67958- 3180 Oct, [facility] [address] [place] [id number] [place] [address] 44224- 7299 Oct, Acquired hypothyroidism E03.9 [facility] [address] [place] [address] 1217 Oct, [place] [address] 97665- 5562 Jun, RLQ abdominal pain R10.31 [place] [address] 53558- 2519 Jun, Sleep apnea G47.30 ; Rash R21 ; RLQ abdominal pain R10.31 and Postoperative hypothyroidism E89.0 [place] [address] 86485- 9054 May, Acquired hypothyroidism E03.9 [place] [address] 40013- 0306 May, [place] [address] 03153- 3441 May, Acquired hypothyroidism E03.9 [place] [address] 05929- 7940 Mar, Acquired hypothyroidism E03.9 [place] [address] 57840- 8901 Mar, Hypertension I10 ; Acquired hypothyroidism E03.9 ; Depression F32.9 ; Anxiety F41.9 ; Sleep apnea G47.30 ; Dysuria R30.0 and Other fatigue R53.83 [place] [address] [place] [id number] [place] [address] 39425- 2758 Feb, [place] [address] 31480- 3825 August, Dysthymic disorder F34.1 ; Depression F32.9 and Sleep apnea G47.30 [place] [address] 04660- 4271 Jun, Dysthymic disorder F34.1 [place] [address] [place] [id number] [place] [address] 35714- 0781 Jun, Dysthymic disorder F34.1 [facility] [address] [facility] [id number] [address] 0[address] Jun, Anxiety F41.9 ; Depression F32.9 and Sleep apnea G47.30 [facility] [address] [facility] [id number] [place] [address]- 3637 Jun, Flank pain R10.9 ; Hematuria R31.9 ; Depression F32.9 ; Hypertension I10 and Sleep apnea G47.30 [facility] [address] [facility] [id number] [place] [address]- 6768 Jun, Dysthymic disorder F34.1 IMMUNIZATIONS No Known Immunizations SOCIAL HISTORY Never Assessed REASON FOR VISIT increase in Synthroid PLAN OF CARE VITAL SIGNS MEDICATIONS Medication Instructions Dosage Frequency Start Date End Date Duration Status Synthroid 150 MCG Orally Once a day 1 tablet on an empty stomach in the morning 24h Nov, 30 day(s) Active RESULTS No Results PROCEDURES No Known [...]
--- OUTSIDE RECORDS SUMMARY | 2018-06-13 09:34 | XMS REPORT ---
Author Author ANGELLA ORELLANA [facility] Address [address] [place] [address] Care Team Providers Care Civil Celebrant Name Role Phone ANGELLA ORELLANA Unavailable PROBLEMS Type Condition ICD9-CM Code EAW89-TQ Code Onset Dates Condition Status SNOMED Code Problem Sleep apnea G47.30 Active 62616562 Problem Hypertension I10 Active 84770564 Problem Depression F32.9 Active 95058184 Problem IBS (irritable bowel syndrome) K58.9 Active 01539207 Problem Restless leg G25.81 Active 80563012 Problem Chronic fatigue R53.82 Active 08572572 Problem Anxiety F41.9 Active 81332212 Problem Dysthymic disorder F34.1 Active 10293928 Problem Postoperative hypothyroidism E89.0 Active 29776205 Problem Acquired hypothyroidism E03.9 Active 601749320 ALLERGIES No Known Allergies SOCIAL HISTORY Never Assessed PLAN OF CARE Activity Details Follow Up 4 Weeks Reason:sleep apnea VITAL SIGNS Height 65 in 2016-07-08 Weight 188.6 lbs 2016-07-08 Temperature 98.2 degrees Fahrenheit 2016-07-08 Heart Rate 72 bpm 2016-07-08 Respiratory Rate 18 2016-07-08 BMI 31.38 kg/m2 2016-07-08 Blood pressure systolic 138 mmHg 2016-07-08 Blood pressure diastolic 82 mmHg 2016-07-08 MEDICATIONS Medication Instructions Dosage Frequency Start Date End Date Duration Status Lisinopril 20 mg Orally Once a day 1 tablet 24h Mar, 90 days Active Zoloft 100 MG Orally Once a day 1 tablet 24h 30 Active Lotrisone 1-0.05 % Externally Twice a day 1 application to affected area 12h Jun, Jul, 14 days Active Levothyroxine Sodium 100 MCG Orally Once a day 1 tablet 24h 30 days Active Amitiza 8 MCG Orally Twice a day 1 capsule with food 12h Jun, Active RESULTS Name Result Date Reference Range TSH W/ FREE T4 2016-07-08 TSH 1.540 0.450-4.500 T4,Free(Direct) 1.10 0.82-1.77 PROCEDURES Procedure Date Ordered Result Body Site ASSAY THYROID STIM HORMONE July 08, 2016 ASSAY OF FREE THYROXINE July 08, 2016 VENIPUNCT, ROUTINE* July 08, 2016 IMMUNIZATIONS No Known Immunizations MEDICAL (GENERAL) HISTORY Type Description Date Medical [...]
--- OUTSIDE RECORDS SUMMARY | 2018-06-13 09:34 | XMS REPORT ---
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 Active 189290744 Problem IBS (irritable bowel syndrome) K58.9 Active 18604042 Problem Sleep apnea G47.30 Active 16670375 Problem Arthritis, lumbar spine M46.96 Active 239147323 Problem Restless leg G25.81 Active 21102604 Problem Acquired hypothyroidism E03.9 Active 815461480 Problem Anxiety F41.9 Active 90855009 Problem Chronic fatigue R53.82 Active 58873472 Problem Postoperative hypothyroidism E89.0 Active 24248930 ALLERGIES No Known Allergies ENCOUNTERS Encounter Location Date Diagnosis [place] [address] [place] [id number] [place] [address] 65863- 7325 Jul, Acquired hypothyroidism E03.9 and Fatigue, unspecified type R53.83 [facility] [address] [place] [id number] [place] [address] 83111- 5835 Jul, Postoperative hypothyroidism E89.0 [facility] [address] [place] [id number] [place] [address] 22287- 9105 Jul, Postoperative hypothyroidism E89.0 [place] [address] [place] [id number] [place] [address] 33370- 3518 Jun, [facility] [address] [place] [id number] [place] [address] 79442- 8275 Jun, Acquired hypothyroidism E03.9 [place] [address] [place] [id number] [place] [address] 66781- 9254 08 Jun, 2017 Arthritis, lumbar spine M46.96 and Acquired hypothyroidism E03.9 [facility] [address] [place] [id number] [place] [address] 77067- 8551 Jun, [facility] [address] [place] [id number] [place] [address] 28784- 2289 Jun, Acquired hypothyroidism E03.9 [facility] [address] [place] [id number] [place] [address] 13532- 3624 Mar, Acquired hypothyroidism E03.9 [facility] [address] [place] [id number] [place] [address] 55534- 0771 Mar, Acquired hypothyroidism E03.9 [facility] [address] [place] [id number] [place] [address] 86943- 2335 Mar, [facility] [address] 76916- 2755 Nov, [facility] [address] [place] [id number] [place] [address] 82258- 5091 Nov, Low vitamin B12 level E53.8 [facility] [address] [place] [id number] [place] [address] 62085- 5553 Nov, Low vitamin B12 level E53.8 [facility] [address] [place] [id number] [place] [address] 79522- 0892 Nov, Chronic fatigue R53.82 ; Restless leg G25.81 and Postoperative hypothyroidism E89.0 [facility] [address] [place] [id number] [place] [address] 37277- 7270 Nov, [facility] [address] [place] [id number] [place] [address] 21559- 3230 Oct, [facility] [address] [place] [id number] [place] [address] 85554- 2634 Oct, Acquired hypothyroidism E03.9 [facility] [address] [place] [id number] [place] [address] 72227- 0075 Oct, [place] [address] 38509- 8003 Jun, RLQ abdominal pain R10.31 [place] [address] 52570- 5138 Jun, Sleep apnea G47.30 ; Rash R21 ; RLQ abdominal pain R10.31 and Postoperative hypothyroidism E89.0 [place] [address] 89095- 8877 May, Acquired hypothyroidism E03.9 [place] [address] 733951- 3596 May, [place] [address] 94712- 4318 May, Acquired hypothyroidism E03.9 [place] [address] 44111- 1784 Mar, Acquired hypothyroidism E03.9 [place] [address] 62643- 2288 Mar, Hypertension I10 ; Acquired hypothyroidism E03.9 ; Depression F32.9 ; Anxiety F41.9 ; Sleep apnea G47.30 ; Dysuria R30.0 and Other fatigue R53.83 [place] [address] [place] [id number] [place] [address] 80902- 3946 Feb, [place] [address] 42252- 7937 August, Dysthymic disorder F34.1 ; Depression F32.9 and Sleep apnea G47.30 [place] [address] 65883- 4205 16 Jun, 2015 Dysthymic disorder F34.1 [place] [address] [place] [id number] [place] [address] 70946- 9030 Jun, Dysthymic disorder F34.1 [facility] [address] [facility] [id number] [place] [address]- 6227 Jun, Anxiety F41.9 ; Depression F32.9 and Sleep apnea G47.30 [facility] [address] [facility] [id number] [address]- 7098 Jun, Flank pain R10.9 ; Hematuria R31.9 ; Depression F32.9 ; Hypertension I10 and Sleep apnea G47.30 [facility] [address] [facility] [id number] [address]- 8349 Jun, Dysthymic disorder F34.1 IMMUNIZATIONS No Known Immunizations SOCIAL HISTORY Never Assessed REASON FOR VISIT lower right Abdominal pain that has been re accuring for a year-Kian MARQUEZ, PT would like her thyroid labs reviewed and gone over with her. She feels as if she is on the wrong medication PLAN OF CARE Activity Details Follow Up 3 Months Reason: VITAL SIGNS Height 65 in 2017-06-23 Weight 193.5 lbs 2017-06-23 Temperature 98.4 degrees Fahrenheit 2017-06-23 Heart Rate 82 bpm 2017-06-23 Respiratory Rate 18 2017-06-23 BMI 32.20 kg/m2 2017-06-23 Blood pressure systolic 122 mmHg 2017-06-23 Blood pressure diastolic 76 mmHg 2017-06-23 MEDICATIONS Medication Instructions Dosage Frequency Start Date End Date Duration Status Zoloft 100 MG Orally Once a day 1 tablet 24h 90 Active Diclofenac Sodium 75 MG Orally Twice a day 1 tablet with food or milk 12h Jun, Sep, 30 day(s) Active Synthroid 137 MCG Orally Once a day 1 tablet on an empty stomach in the morning 24h Nov, 30 day(s) Active Bentyl 20 mg Orally Four times a day before meals and hs 1 tablet Jun 30 days Not-Taking Lisinopril 20 mg Orally Once a day 1 tablet 24h 90 Active RESULTS No Results PROCEDURES No Known [...]
--- OUTSIDE RECORDS SUMMARY | 2018-06-13 09:34 | XMS REPORT ---
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 Active 072948567 Problem IBS (irritable bowel syndrome) K58.9 Active 21084352 Problem Sleep apnea G47.30 Active 82264695 Problem Arthritis, lumbar spine M46.96 Active 380180301 Problem Restless leg G25.81 Active 04896209 Problem Acquired hypothyroidism E03.9 Active 951607717 Problem Anxiety F41.9 Active 43395384 Problem Chronic fatigue R53.82 Active 63684160 Problem Postoperative hypothyroidism E89.0 Active 85426231 ALLERGIES No Known Allergies ENCOUNTERS Encounter Location Date Diagnosis [place] [address] [place] [address] 76639- 3760 Sep, [place] [address] [place] [address] 41965- 2185 Jul, Acquired hypothyroidism E03.9 and Fatigue, unspecified type R53.83 [facility] [address] [place] [id number] [place] [address] 77713- 1054 Jul, Postoperative hypothyroidism E89.0 [place] [address] [place] [id number] [place] [address] 80940- 5178 Jul, Postoperative hypothyroidism E89.0 [facility] [address] [place] [id number] [place] [address] 90331- 2540 Jun, [facility] [address] [place] [id number] [place] [address] 46833- 4327 Jun, Acquired hypothyroidism E03.9 [facility] [address] [place] [id number] [place] [address] 95865- 9886 08 Jun, 2017 Arthritis, lumbar spine M46.96 and Acquired hypothyroidism E03.9 [facility] [address] [place] [id number] [place] [address] 06714- 2854 Jun, [facility] [address] [place] [id number] [place] [address] 76635- 5526 Jun, Acquired hypothyroidism E03.9 [facility] [address] [place] [id number] [place] [address] 51260- 9766 Mar, Acquired hypothyroidism E03.9 [facility] [address] [place] [id number] [place] [address] 33165- 3150 Mar, Acquired hypothyroidism E03.9 [facility] [address] [place] [id number] [place] [address] 59618- 5117 Mar, [facility] [address] [place] [id number] [place] [address] 29217- 2857 Nov, [facility] [address] [place] [id number] [place] [address] 58809- 7364 Nov, Low vitamin B12 level E53.8 [facility] [address] [place] [id number] [place] [address] 20883- 1066 Nov, Low vitamin B12 level E53.8 [facility] [address] [place] [id number] [place] [address] 60075- 9319 Nov, Chronic fatigue R53.82 ; Restless leg G25.81 and Postoperative hypothyroidism E89.0 [facility] [address] [place] [id number] [place] [address] 35334- 8985 Nov, [facility] [address] [place] [id number] [place] [address] 69664- 8783 Oct, [facility] [address] [place] [id number] [place] [address] 85579- 6273 Oct, Acquired hypothyroidism E03.9 [facility] [address] [place] [id number] [place] [address] 50716- 6342 Oct, [facility] [address] [place] 870736- 4695 Jun, RLQ abdominal pain R10.31 [facility] [address] 60833- 2702 Jun, Sleep apnea G47.30 ; Rash R21 ; RLQ abdominal pain R10.31 and Postoperative hypothyroidism E89.0 [place] [address] 33848- 2349 May, Acquired hypothyroidism E03.9 [facility] [address] 14391- 3230 May, [facility] [address] 47138- 4239 May, Acquired hypothyroidism E03.9 [facility] [address] [place] [id number] [place] [address] 20859- 4081 Mar, Acquired hypothyroidism E03.9 [facility] [address] [place] [id number] [place] [address]- 5008 Mar, Hypertension I10 ; Acquired hypothyroidism E03.9 ; Depression F32.9 ; Anxiety F41.9 ; Sleep apnea G47.30 ; Dysuria R30.0 and Other fatigue R53.83 [facility] [address] [place] [id number] [place] [address] 65189- 4502 Feb, [facility] [address] [place] [id number]- 4382 August, Dysthymic disorder F34.1 ; Depression F32.9 and Sleep apnea G47.30 [facility] [address] [place] [address] [id number] [place] [address] 94872- 7983 Jun, Dysthymic disorder F34.1 [place] [address] [id number] [address]- 1420 Jun, Dysthymic disorder F34.1 [place] [address] [place] [address] 26254- 2832 Jun, Anxiety F41.9 ; Depression F32.9 and Sleep apnea G47.30 [place] [address] 48072- 9873 Jun, Flank pain R10.9 ; Hematuria R31.9 ; Depression F32.9 ; Hypertension I10 and Sleep apnea G47.30 [place] [address] [place] [id number] [place] [address] 96644- 8349 Jun, Dysthymic disorder F34.1 IMMUNIZATIONS No Known Immunizations SOCIAL HISTORY Never Assessed REASON FOR VISIT thyroid f/u----DBennettRN PLAN OF CARE Activity Details Follow Up 3 Months Reason:hypothyroid VITAL SIGNS Height 65 in 2017-04-06 Weight 189 lbs 2017-04-06 Temperature 98.4 degrees Fahrenheit 2017-04-06 Heart Rate 80 bpm 2017-04-06 Respiratory Rate 20 2017-04-06 BMI 31.45 kg/m2 2017-04-06 Blood pressure systolic 120 mmHg 2017-04-06 Blood pressure diastolic 80 mmHg 2017-04-06 MEDICATIONS Medication Instructions Dosage Frequency Start Date End Date Duration Status Zoloft 100 MG Orally Once a day 1 tablet 24h 30 Active Lisinopril 20 mg Orally Once a day 1 tablet 24h 30 Active Bentyl 20 mg Orally Four times a day before meals and hs 1 tablet Jun 30 days Not-Taking Synthroid 112 MCG Orally Once a day 1 tablet on an empty stomach in the morning 24h Nov, 30 day(s) Active RESULTS Name Result Date Reference Range TSH w/ FREE T4 2017-04-06 TSH 7.30 0.40-4.50 T4, FREE 1.2 0.8-1.8 PROCEDURES Procedure Date Ordered Result Body Site LAB NOT BILLED BY [facility] Apr 06, 2017 VENIPUNCT, ROUTINE* Apr 06, 2017 INSTRUCTIONS MEDICATIONS ADMINISTERED No Known Medications [...]
--- OUTSIDE RECORDS SUMMARY | 2018-06-13 09:34 | XMS REPORT ---
Author Author ANGELLA ORELLANA Organization [facility] Address [address] [place] [address] Care Team Providers Care Bulk Truck Driver Name Role Phone ANGELLA ORELLANA Unavailable PROBLEMS Type Condition ICD9-CM Code [id number] Code Onset Dates Condition Status SNOMED Code Problem Depression F32.9 Active 09054099 Problem Dysthymic disorder F34.1 Active 25132628 Problem Hypertension I10 Active 33007652 Problem S/P bilateral mastectomy Z90.13 Active 131718901 Problem IBS (irritable bowel syndrome) K58.9 Active 75526553 Problem Sleep apnea G47.30 Active 19787425 Problem Arthritis, lumbar spine M46.96 Active 906238371 Problem Restless leg G25.81 Active 88224742 Problem Acquired hypothyroidism E03.9 Active 855931030 Problem Anxiety F41.9 Active 94305530 Problem Chronic fatigue R53.82 Active 18734770 Problem Postoperative hypothyroidism E89.0 Active 89582912 ALLERGIES No Information ENCOUNTERS Encounter Location Date Diagnosis [place] [address] [place] [address] 63113- 0158 Jun, [place] [address] [place] [id number] [place] [address] 29595- 6287 Jun, Acquired hypothyroidism E03.9 [facility] [id number] [place] [address] 07723- 0368 Jun, Arthritis, lumbar spine M46.96 and Acquired hypothyroidism E03.9 [facility] [address] [id number] [place] [address] 90410- 7656 Jun, [place] [address] [address] [id number] [place] [address] 71177- 6907 Jun, Acquired hypothyroidism E03.9 [place] [address] [address] [id number] [place] [address] 44535- 8318 Mar, Acquired hypothyroidism E03.9 [facility] [id number] [place] [address] 66180- 0530 Mar, Acquired hypothyroidism E03.9 [facility] [id number] [place] [address] 15215- 6381 Mar, [facility] [address] 57341- 2814 Nov, [facility] [id number] [place] [address] 80479- 9355 Nov, Low vitamin B12 level E53.8 [facility] [address] [id number] [place] [address] 32803- 0137 Nov, Low vitamin B12 level E53.8 [facility] [id number] [place] [address] 71564- 9755 Nov, Chronic fatigue R53.82 ; Restless leg G25.81 and Postoperative hypothyroidism E89.0 [facility] [id number] [place] [address] 79360- 0910 Nov, [facility] [id number] [place] [address] 07567- 3403 Oct, [facility] [id number] [place] [address] 03597- 2856 Oct, Acquired hypothyroidism E03.9 [facility] [id number] [place] [address] 26645- 9476 Oct, [facility] [id number] [place] [address] 64845- 1816 Jun, RLQ abdominal pain R10.31 [facility] [id number] [place] [address] 38531- 0350 Jun, Sleep apnea G47.30 ; Rash R21 ; RLQ abdominal pain R10.31 and Postoperative hypothyroidism E89.0 [facility] [id number] [place] [address] 70879- 2955 May, Acquired hypothyroidism E03.9 [place] [address] [place] [phone]- 7020 May, [place] [address] 43999- 6905 08 May, 2016 Acquired hypothyroidism E03.9 [place] [address] 34757- 2600 Mar, Acquired hypothyroidism E03.9 [place] [address] 07910- 2058 Mar, Hypertension I10 ; Acquired hypothyroidism E03.9 ; Depression F32.9 ; Anxiety F41.9 ; Sleep apnea G47.30 ; Dysuria R30.0 and Other fatigue R53.83 [place] [address] 37435- 2103 Feb, [place] [address] 19966- 9243 August, Dysthymic disorder F34.1 ; Depression F32.9 and Sleep apnea G47.30 [place] [address] [address] [id number] [place] [address] 45911- 9391 Jun, Dysthymic disorder F34.1 [place] [address] 05118- 4123 Jun, Dysthymic disorder F34.1 [place] [address] 16619- 3624 Jun, Anxiety F41.9 ; Depression F32.9 and Sleep apnea G47.30 [place] [address] [place] [id number]- 1390 Jun, Flank pain R10.9 ; Hematuria R31.9 ; Depression F32.9 ; Hypertension I10 and Sleep apnea G47.30 [place] [address] [place] [id number] [place] [address]- 8336 Jun, Dysthymic disorder F34.1 IMMUNIZATIONS No Known Immunizations SOCIAL HISTORY Never Assessed REASON FOR VISIT Thyroid Concerns PLAN OF CARE VITAL SIGNS MEDICATIONS Unknown [...]
--- OUTSIDE RECORDS SUMMARY | 2018-06-13 09:34 | XMS REPORT ---
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 Active 476544524 Problem IBS (irritable bowel syndrome) K58.9 Active 02148584 Problem Sleep apnea G47.30 Active 67695031 Problem Arthritis, lumbar spine M46.96 Active 387832546 Problem Restless leg G25.81 Active 18707734 Problem Acquired hypothyroidism E03.9 Active 026705589 Problem Anxiety F41.9 Active 06550912 Problem Chronic fatigue R53.82 Active 08184050 Problem Postoperative hypothyroidism E89.0 Active 66058302 ALLERGIES No Information ENCOUNTERS Encounter Location Date Diagnosis [place] [address] [place] [address] 64875- 1479 Jul, Acquired hypothyroidism E03.9 and Fatigue, unspecified type R53.83 [place] [address] [place] [id number] [place] [address] 21004- 0082 Jul, Postoperative hypothyroidism E89.0 [place] [address] [place] [id number] [place] [address] 52302- 1583 Jul, Postoperative hypothyroidism E89.0 [place] [address] [place] [id number] [place] [address] 82853- 6639 Jun, [place] [address] [place] [id number] [place] [address] 03000- 8958 Jun, Acquired hypothyroidism E03.9 [place] [address] [place] [id number] [place] [address] 81268- 4758 08 Jun, 2017 Arthritis, lumbar spine M46.96 and Acquired hypothyroidism E03.9 [facility] [address] [place] [address] [id number] [place] [address] 30260- 5799 Jun, [facility] [address] [place] [id number] [place] [address] 92050- 2657 Jun, Acquired hypothyroidism E03.9 [facility] [address] [place] [id number] [place] [address] 41160- 3812 Mar, Acquired hypothyroidism E03.9 [facility] [address] 57962- 4838 Mar, Acquired hypothyroidism E03.9 [facility] [address] [place] [id number] [place] [address] 15342- 4954 Mar, [facility] [address] 69530- 4099 Nov, [facility] [address] [place] [id number] [place] [address] 15921- 7793 Nov, Low vitamin B12 level E53.8 [facility] [address] [place] [id number] [place] [address] 21717- 0582 Nov, Low vitamin B12 level E53.8 [facility] [address] [place] [id number] [place] [address] 33625- 5602 Nov, Chronic fatigue R53.82 ; Restless leg G25.81 and Postoperative hypothyroidism E89.0 [facility] [address] [place] [id number] [place] [address] 31029- 5255 Nov, [facility] [address] [place] [id number] [place] [address] 81778- 9466 Oct, [facility] [address] [place] [id number] [place] [address] 70657- 3723 Oct, Acquired hypothyroidism E03.9 [facility] [address] [place] [address]- 5245 Oct, [place] [address] 70435- 5818 Jun, RLQ abdominal pain R10.31 [place] [address] 81696- 8003 Jun, Sleep apnea G47.30 ; Rash R21 ; RLQ abdominal pain R10.31 and Postoperative hypothyroidism E89.0 [place] [address] 22494- 0300 May, Acquired hypothyroidism E03.9 [place] [address] 37924- 7464 May, [place] [address] 01074- 5995 May, Acquired hypothyroidism E03.9 [place] [address] 69001- 2423 Mar, Acquired hypothyroidism E03.9 [place] [address] 94321- 7666 Mar, Hypertension I10 ; Acquired hypothyroidism E03.9 ; Depression F32.9 ; Anxiety F41.9 ; Sleep apnea G47.30 ; Dysuria R30.0 and Other fatigue R53.83 [place] [address] [place] [id number] [place] [address] 31487- 4970 Feb, [place] [address] 30203- 2180 August, Dysthymic disorder F34.1 ; Depression F32.9 and Sleep apnea G47.30 [place] [address] 78246- 5301 Jun, Dysthymic disorder F34.1 [place] [address] [place] [id number] [place] [address] 58895- 8237 Jun, Dysthymic disorder F34.1 [facility] [address] [facility] [id number] [address]- 7286 Jun, Anxiety F41.9 ; Depression F32.9 and Sleep apnea G47.30 [facility] [address] [id number] [address]- 7197 Jun, Flank pain R10.9 ; Hematuria R31.9 ; Depression F32.9 ; Hypertension I10 and Sleep apnea G47.30 [facility] [address] [facility] [id number] [address]- 7639 Jun, Dysthymic disorder F34.1 IMMUNIZATIONS No Known Immunizations SOCIAL HISTORY Never Assessed REASON FOR VISIT PLAN OF CARE VITAL SIGNS MEDICATIONS Unknown [...]
--- OUTSIDE RECORDS SUMMARY | 2018-06-13 09:34 | XMS REPORT ---
Author Author ANGELLA ORELLANA Organization [facility] Address [address] [place] [address] Care Team Providers Care Merchandise Pickup/Receiving Associate Name Role Phone ANGELLA ORELLANA Unavailable PROBLEMS Type Condition ICD9-CM Code KIJ89-[id number] Code Onset Dates Condition Status SNOMED Code Problem Depression F32.9 Active 60232266 Problem Dysthymic disorder F34.1 Active 35527631 Problem Hypertension I10 Active 49747884 Problem S/P bilateral mastectomy Z90.13 Active 967475318 Problem IBS (irritable bowel syndrome) K58.9 Active 64992116 Problem Sleep apnea G47.30 Active 29562025 Problem Arthritis, lumbar spine M46.96 Active 393941357 Problem Restless leg G25.81 Active 70170244 Problem Acquired hypothyroidism E03.9 Active 760743932 Problem Anxiety F41.9 Active 16395555 Problem Chronic fatigue R53.82 Active 33787780 Problem Postoperative hypothyroidism E89.0 Active 98949639 ALLERGIES No Information ENCOUNTERS Encounter Location Date Diagnosis [place] [address] [place] [address] 19073- 4535 Jun, [place] [address] [place] [id number] [place] [address] 71359- 7932 Jun, Acquired hypothyroidism E03.9 [facility] [address] [place] [id number] [place] [address] 22206- 7348 Jun, Arthritis, lumbar spine M46.96 and Acquired hypothyroidism E03.9 [place] [address] [place] [id number] [place] [address] 70819- 1167 Jun, [place] [address] [place] [id number] [place] [address] 81315- 4930 Jun, Acquired hypothyroidism E03.9 [place] [address] [place] [id number] [place] [address] 53619- 7221 Mar, Acquired hypothyroidism E03.9 [facility] [address] [place] [id number] [place] [address] 96639- 6169 Mar, Acquired hypothyroidism E03.9 [facility] [address] [place] [id number] [place] [address] 96631- 0013 Mar, [facility] [address] 18062- 5312 Nov, [facility] [address] [place] [id number] [place] [address] 41758- 6995 Nov, Low vitamin B12 level E53.8 [facility] [address] [place] [id number] [place] [address] 91857- 6731 Nov, Low vitamin B12 level E53.8 [facility] [address] [place] [id number] [place] [address] 10072- 1636 Nov, Chronic fatigue R53.82 ; Restless leg G25.81 and Postoperative hypothyroidism E89.0 [facility] [address] [place] [id number] [place] [address] 24789- 9218 Nov, [facility] [address] [place] [id number] [place] [address] 97519- 4123 Oct, [facility] [address] [place] [id number] [place] [address] 67197- 9873 Oct, Acquired hypothyroidism E03.9 [facility] [address] [place] [id number] [place] [address] 72546- 4945 Oct, [facility] [address] [place] [id number] [place] [address] 06371- 3763 Jun, RLQ abdominal pain R10.31 [facility] [address] [place] [id number] [place] [address] 98695- 1538 Jun, Sleep apnea G47.30 ; Rash R21 ; RLQ abdominal pain R10.31 and Postoperative hypothyroidism E89.0 [facility] [address] [place] [id number] [place] [address] 77645- 4080 May, Acquired hypothyroidism E03.9 [place] [address] [place] [id number]- 9881 May, [place] [address] 73631- 8484 08 May, 2016 Acquired hypothyroidism E03.9 [place] [address] 58677- 3825 Mar, Acquired hypothyroidism E03.9 [place] [address] 19133- 5851 Mar, Hypertension I10 ; Acquired hypothyroidism E03.9 ; Depression F32.9 ; Anxiety F41.9 ; Sleep apnea G47.30 ; Dysuria R30.0 and Other fatigue R53.83 [place] [address] 04844- 6796 Feb, [place] [address] 65559- 5931 August, Dysthymic disorder F34.1 ; Depression F32.9 and Sleep apnea G47.30 [place] [address] [place] [id number] [place] [address] 98604- 7322 Jun, Dysthymic disorder F34.1 [place] [address] 20102- 7412 Jun, Dysthymic disorder F34.1 [place] [address] 91397- 8161 Jun, Anxiety F41.9 ; Depression F32.9 and Sleep apnea G47.30 [place] [address] [place] [id number]- 9916 Jun, Flank pain R10.9 ; Hematuria R31.9 ; Depression F32.9 ; Hypertension I10 and Sleep apnea G47.30 [place] [address] [place] [id number] [place] [address]- 0876 Jun, Dysthymic disorder F34.1 IMMUNIZATIONS No Known Immunizations SOCIAL HISTORY Never Assessed REASON FOR VISIT Physician Consult Appointment PLAN OF CARE VITAL SIGNS MEDICATIONS Unknown [...]
[2018-06-13 09:35] VITALS: BP 135/56
--- OUTSIDE RECORDS SUMMARY | 2018-06-13 09:35 | XMS REPORT ---
Author Author ANGELLA ORELLANA [facility] Address [address] [place] [address] Care Team Providers Care Manager Flight Operations Name Role Phone ANGELLA ORELLANA Unavailable PROBLEMS Type Condition ICD9-CM Code AAC88-UM Code Onset Dates Condition Status SNOMED Code Assessment Hypertension I10 Mar, Active 88820489 Problem Sleep apnea G47.30 Active 50891904 Problem Hypothyroid E03.9 Active 52567372 Assessment Other fatigue R53.83 Mar, Active 88941172 Assessment Dysuria R30.0 Mar, Active 54633585 Problem Acquired hypothyroidism E03.9 Active 578157633 Problem Anxiety F41.9 Active 08430963 Problem Depression F32.9 Active 89090501 Problem Hypertension I10 Active 51043287 Problem Dysthymic disorder F34.1 Active 14858015 Problem IBS (irritable bowel syndrome) K58.9 Active 47412040 ALLERGIES Substance Reaction Event Type Date Status N.K.D.A. Unknown Non Drug Allergy Mar, Unknown SOCIAL HISTORY No smoking Hx information available PLAN OF CARE VITAL SIGNS Height 65 in 2016-03-23 Weight 190.2 lbs 2016-03-23 Heart Rate 88 bpm 2016-03-23 Respiratory Rate 20 2016-03-23 BMI 31.65 kg/m2 2016-03-23 Blood pressure systolic 144 mmHg 2016-03-23 Blood pressure diastolic 98 mmHg 2016-03-23 MEDICATIONS Medication Instructions Dosage Frequency Start Date End Date Duration Status Levothyroxine Sodium 175 MCG Orally Once a day 1 tablet 24h Active Zoloft 100 MG Orally Once a day 1 tablet 24h Jun, 30 Active Lisinopril 20 mg Orally Once a day 1 tablet 24h Mar, 90 days Active RESULTS No Results PROCEDURES Procedure Date Ordered Related Diagnosis Body Site ASSAY THYROID STIM HORMONE Mar 23, 2016 URINALYSIS, AUTO, W/O SCOPE Mar 23, 2016 COMPLETE CBC W/AUTO DIFF WBC Mar 23, 2016 COMPREHEN METABOLIC PANEL Mar 23, 2016 Office Visit, Est Pt., Level 3 Mar 23, 2016 VENIPUNCT, ROUTINE* Mar 23, 2016 IMMUNIZATIONS No Known Immunizations
--- OUTSIDE RECORDS SUMMARY | 2018-06-13 09:35 | XMS REPORT ---
Author Author ANGELLA ORELLANA Organization [facility] Address [address] [place] [address] Care Team Providers Care Wire Spring Relay Adjuster Name Role Phone ANGELLA ORELLANA Unavailable PROBLEMS Type Condition ICD9-CM Code TGD49-FE Code Onset Dates Condition Status SNOMED Code Problem Depression F32.9 Active 51505018 Problem Dysthymic disorder F34.1 Active 77561325 Problem Hypertension I10 Active 34566017 Problem S/P bilateral mastectomy Z90.13 Active 737021725 Problem IBS (irritable bowel syndrome) K58.9 Active 88173810 Problem Sleep apnea G47.30 Active 36438787 Problem Arthritis, lumbar spine M46.96 Active 607513201 Problem Restless leg G25.81 Active 90290672 Problem Acquired hypothyroidism E03.9 Active 932638232 Problem Anxiety F41.9 Active 96185811 Problem Chronic fatigue R53.82 Active 33888738 Problem Postoperative hypothyroidism E89.0 Active 48081960 ALLERGIES No Information ENCOUNTERS Encounter Location Date Diagnosis [place] [address] [place] [id number] [place] [address] 62692- 4943 Sep, [place] [address] [place] [id number] [place] [address] 34179- 8727 Jul, Acquired hypothyroidism E03.9 and Fatigue, unspecified type R53.83 [facility] [address] [place] [id number] [place] [address] 29669- 5372 Jul, Postoperative hypothyroidism E89.0 [place] [address] [place] [id number] [place] [address] 38040- 7780 Jul, Postoperative hypothyroidism E89.0 [facility] [address] [address] [id number] [place] [address] 38070- 3698 Jun, [facility] [address] [place] [address]- 5601 Jun, Acquired hypothyroidism E03.9 [facility] [address] [id number] [place] [address] 28045- 7425 08 Jun, 2017 Arthritis, lumbar spine M46.96 and Acquired hypothyroidism E03.9 [facility] [address] [place] [id number] [place] [address] 83533- 7192 Jun, [facility] [address] [address] [id number] [place] [address] 87776- 8394 Jun, Acquired hypothyroidism E03.9 [facility] [address] [id number] [place] [address] 91903- 2175 Mar, Acquired hypothyroidism E03.9 [facility] [address] [place] [id number] [place] [address] 10264- 7537 Mar, Acquired hypothyroidism E03.9 [facility] [address] [id number] [place] [address] 16841- 0585 Mar, [facility] [address] [place] [id number] [place] [address] 76628- 1367 Nov, [facility] [address] [id number] [place] [address] 45965- 1494 Nov, Low vitamin B12 level E53.8 [facility] [address] [address] [id number] [place] [address] 75210- 5348 Nov, Low vitamin B12 level E53.8 [facility] [address] [id number] [place] [address] 58323- 6528 Nov, Chronic fatigue R53.82 ; Restless leg G25.81 and Postoperative hypothyroidism E89.0 [facility] [address] [place] [id number] [place] [address] 57514- 1247 Nov, [facility] [address] [id number] [place] [address] 31863- 9164 Oct, [facility] [address] 05878- 1070 Oct, Acquired hypothyroidism E03.9 [facility] [address] [id number] [place] [address] 43814- 9163 Oct, [facility] [address] [id number] [place] [address]- 9004 Jun, RLQ abdominal pain R10.31 [facility] [address] 06788- 4271 Jun, Sleep apnea G47.30 ; Rash R21 ; RLQ abdominal pain R10.31 and Postoperative hypothyroidism E89.0 [place] [address] 90530- 2062 May, Acquired hypothyroidism E03.9 [place] [address] 08035- 0297 May, [facility] [address] 92732- 5487 May, Acquired hypothyroidism E03.9 [facility] [address] [place] [id number] [place] [address] 25952- 5291 Mar, Acquired hypothyroidism E03.9 [place] [address] [id number] [place] [address]- 5845 Mar, Hypertension I10 ; Acquired hypothyroidism E03.9 ; Depression F32.9 ; Anxiety F41.9 ; Sleep apnea G47.30 ; Dysuria R30.0 and Other fatigue R53.83 [facility] [address] [address] [id number] [place] [address] 01860- 1093 Feb, [place] [address] [place] [phone]- 3501 August, Dysthymic disorder F34.1 ; Depression F32.9 and Sleep apnea G47.30 [facility] [address] [place] [id number] [place] [address] 90010- 5436 Jun, Dysthymic disorder F34.1 [place] [id number] [place] [address] [id number] [address] Jun, Dysthymic disorder F34.1 [place] [id number], [place] [address] Jun, Anxiety F41.9 ; Depression F32.9 and Sleep apnea G47.30 [place] [id number] [place] [address] Jun, Flank pain R10.9 ; Hematuria R31.9 ; Depression F32.9 ; Hypertension I10 and Sleep apnea G47.30 [place] [id number], [place] [address] Jun, Dysthymic disorder F34.1 IMMUNIZATIONS No Known Immunizations SOCIAL HISTORY Never Assessed REASON FOR VISIT med/lab order PLAN OF CARE VITAL SIGNS MEDICATIONS Medication Instructions Dosage Frequency Start Date End Date Duration Status Synthroid 125 mcg Orally Once a day 1 tablet on [...]
--- OUTSIDE RECORDS SUMMARY | 2018-06-13 09:35 | XMS REPORT ---
Author Author ANGELLA ORELLANA [facility] Address [address] [place] [address] Care Team Providers Care Drophammer Operator Name Role Phone ANGELLA ORELLANA Unavailable PROBLEMS Type Condition ICD9-CM Code TAL85-MP Code Onset Dates Condition Status SNOMED Code Problem Sleep apnea G47.30 Active 55478281 Problem Hypertension I10 Active 81479895 Problem Depression F32.9 Active 71338905 Problem IBS (irritable bowel syndrome) K58.9 Active 14021074 Problem Restless leg G25.81 Active 10921750 Problem Chronic fatigue R53.82 Active 19370713 Problem Anxiety F41.9 Active 69741391 Problem Dysthymic disorder F34.1 Active 83116733 Problem Postoperative hypothyroidism E89.0 Active 49446426 Problem Acquired hypothyroidism E03.9 Active 453850305 ALLERGIES No Information SOCIAL HISTORY Never Assessed PLAN OF CARE VITAL SIGNS MEDICATIONS Unknown Medications RESULTS No Results PROCEDURES No Known procedures IMMUNIZATIONS No Known Immunizations MEDICAL (GENERAL) HISTORY [...]
--- OUTSIDE RECORDS SUMMARY | 2018-06-13 09:35 | XMS REPORT ---
Author Author ANGELLA ORELLANA Organization [facility] Address [address] [place] [address] Care Team Providers Care Air Conditioning Technician Name Role Phone ANGELLA ORELLANA Unavailable PROBLEMS Type Condition ICD9-CM Code LNJ22-MK Code Onset Dates Condition Status SNOMED Code Problem Depression F32.9 Active 87184713 Problem Dysthymic disorder F34.1 Active 67141109 Problem Hypertension I10 Active 41527540 Problem S/P bilateral mastectomy Z90.13 Active 537000825 Problem IBS (irritable bowel syndrome) K58.9 Active 53333681 Problem Sleep apnea G47.30 Active 26085470 Problem Arthritis, lumbar spine M46.96 Active 838818145 Problem Restless leg G25.81 Active 31518464 Problem Acquired hypothyroidism E03.9 Active 142868044 Problem Anxiety F41.9 Active 42905695 Problem Chronic fatigue R53.82 Active 26017280 Problem Postoperative hypothyroidism E89.0 Active 60829142 ALLERGIES No Information ENCOUNTERS Encounter Location Date Diagnosis [place] [address] [place] [address] 75674- 7232 Jun, [place] [address] [place] [id number] [place] [address] 52568- 7014 Jun, Acquired hypothyroidism E03.9 [facility] [address] [id number] [place] [address] 19635- 3322 Jun, Arthritis, lumbar spine M46.96 and Acquired hypothyroidism E03.9 [place] [address] [id number] [place] [address] 64633- 6602 Jun, [place] [address] [place] [id number] [place] [address] 44303- 8770 Jun, Acquired hypothyroidism E03.9 [place] [address] [place] [id number] [place] [address] 25679- 6558 Mar, Acquired hypothyroidism E03.9 [facility] [id number] [place] [address] 77753- 1270 Mar, Acquired hypothyroidism E03.9 [facility] [id number] [place] [address] 49989- 8669 Mar, [facility] [address] 36558- 8954 Nov, [facility] [address] [place] [address] [id number] [place] [address] 15026- 1904 Nov, Low vitamin B12 level E53.8 [facility] [address] [id number] [place] [address] 52266- 1024 Nov, Low vitamin B12 level E53.8 [facility] [id number] [place] [address] 61166- 1668 Nov, Chronic fatigue R53.82 ; Restless leg G25.81 and Postoperative hypothyroidism E89.0 [facility] [id number] [place] [address] 89949- 4997 Nov, [facility] [id number] [place] [address] 02181- 2414 Oct, [facility] [id number] [place] [address] 55290- 8408 Oct, Acquired hypothyroidism E03.9 [facility] [id number] [place] [address] 83556- 9395 Oct, [facility] [id number] [place] [address] 24071- 0369 Jun, RLQ abdominal pain R10.31 [facility] [id number] [place] [address] 69103- 3448 Jun, Sleep apnea G47.30 ; Rash R21 ; RLQ abdominal pain R10.31 and Postoperative hypothyroidism E89.0 [facility] [id number] [place] [address] 77898- 5611 May, Acquired hypothyroidism E03.9 [place] [address] [place] [id number]- 5892 May, [place] [address] 00003- 1867 08 May, 2016 Acquired hypothyroidism E03.9 [place] [address] 62915- 3660 Mar, Acquired hypothyroidism E03.9 [place] [address] 66918- 4039 Mar, Hypertension I10 ; Acquired hypothyroidism E03.9 ; Depression F32.9 ; Anxiety F41.9 ; Sleep apnea G47.30 ; Dysuria R30.0 and Other fatigue R53.83 [place] [address] 84919- 3219 Feb, [place] [address] 13718- 6970 August, Dysthymic disorder F34.1 ; Depression F32.9 and Sleep apnea G47.30 [place] [address] [place] [id number] [place] [address] 12801- 6790 Jun, Dysthymic disorder F34.1 [place] [address] 35529- 1670 Jun, Dysthymic disorder F34.1 [place] [address] 04019- 3722 Jun, Anxiety F41.9 ; Depression F32.9 and Sleep apnea G47.30 [place] [address] [place] [id number]- 1961 Jun, Flank pain R10.9 ; Hematuria R31.9 ; Depression F32.9 ; Hypertension I10 and Sleep apnea G47.30 [place] [address] [place] [id number] [address] 6169 Jun, Dysthymic disorder F34.1 IMMUNIZATIONS No Known Immunizations SOCIAL HISTORY Never Assessed REASON FOR VISIT Lab (walk-in) PLAN OF CARE VITAL SIGNS MEDICATIONS Unknown Medications RESULTS Name Result Date Reference Range Written Authorization 2016-11-03 Written Authorization T4 FREE 2016-11-03 T4,Free(Direct) 0.94 0.82-1.77 TSH 2016-11-03 TSH 7.680 0.450-4.500 PROCEDURES Procedure Date Ordered Result Body Site ASSAY THYROID STIM HORMONE November 03, 2016 VENIPUNCT, ROUTINE* November 03, 2016 INSTRUCTIONS MEDICATIONS ADMINISTERED No Known Medications MEDICAL [...]
--- OUTSIDE RECORDS SUMMARY | 2018-06-13 09:35 | XMS REPORT ---
Author Author ANGELLA ORELLANA [facility] Address [address] [place] [address] Care Team Providers Care Home Organizer Name Role Phone ANGELLA ORELLANA Unavailable PROBLEMS Type Condition ICD9-CM Code HIQ41-MX Code Onset Dates Condition Status SNOMED Code Problem Sleep apnea G47.30 Active 02900243 Problem Hypertension I10 Active 99742765 Problem Depression F32.9 Active 74424071 Problem IBS (irritable bowel syndrome) K58.9 Active 90916035 Problem Restless leg G25.81 Active 54140807 Problem Chronic fatigue R53.82 Active 88770876 Problem Anxiety F41.9 Active 83379320 Problem Dysthymic disorder F34.1 Active 91697398 Problem Postoperative hypothyroidism E89.0 Active 06492513 Problem Acquired hypothyroidism E03.9 Active 065282265 ALLERGIES No Information SOCIAL HISTORY Never Assessed PLAN OF CARE VITAL SIGNS MEDICATIONS Medication Instructions Dosage Frequency Start Date End Date Duration Status Levothyroxine Sodium 100 MCG Orally Once a day 1 tablet 24h 30 days Active RESULTS No Results PROCEDURES [...]
--- OUTSIDE RECORDS SUMMARY | 2018-06-13 09:35 | XMS REPORT ---
Author Author ANGELLA ORELLANA Organization [facility] Address [address] [place] [address] Care Team Providers Care Track Service Worker Name Role Phone ANGELLA ORELLANA Unavailable PROBLEMS Type Condition ICD9-CM Code RMR56-JS Code Onset Dates Condition Status SNOMED Code Problem Depression F32.9 Active 08780608 Problem Dysthymic disorder F34.1 Active 65819468 Problem Hypertension I10 Active 71320886 Problem S/P bilateral mastectomy Z90.13 Active 520373287 Problem IBS (irritable bowel syndrome) K58.9 Active 56727533 Problem Sleep apnea G47.30 Active 65722477 Problem Arthritis, lumbar spine M46.96 Active 970742270 Problem Restless leg G25.81 Active 79632784 Problem Acquired hypothyroidism E03.9 Active 480886990 Problem Anxiety F41.9 Active 66144914 Problem Chronic fatigue R53.82 Active 57460880 Problem Postoperative hypothyroidism E89.0 Active 01681040 ALLERGIES No Information ENCOUNTERS Encounter Location Date Diagnosis [place] [address] [place] [address] 60884- 9421 Jun, [place] [address] [place] [id number] [place] [address] 29290- 4271 Jun, Acquired hypothyroidism E03.9 [facility] [address] [place] [address] [id number] [place] [address] 10635- 8874 Jun, Arthritis, lumbar spine M46.96 and Acquired hypothyroidism E03.9 [place] [address] [place] [id number] [place] [address] 72110- 9267 Jun, [place] [address] [place] [id number] [place] [address] 68872- 1385 Jun, Acquired hypothyroidism E03.9 [place] [address] [place] [id number] [place] [address] 06827- 5248 Mar, Acquired hypothyroidism E03.9 [facility] [address] [place] [address] [id number] [place] [address] 21210- 8256 Mar, Acquired hypothyroidism E03.9 [facility] [address] [place] [address] [id number] [place] [address] 72184- 1572 Mar, [facility] [address] 92390- 0699 Nov, [facility] [address] [place] [id number] [place] [address] 49451- 3299 Nov, Low vitamin B12 level E53.8 [facility] [address] [place] [id number] [place] [address] 03647- 7531 Nov, Low vitamin B12 level E53.8 [facility] [address] [place] [address] [id number] [place] [address] 87478- 1047 Nov, Chronic fatigue R53.82 ; Restless leg G25.81 and Postoperative hypothyroidism E89.0 [facility] [address] [place] [address] [id number] [place] [address] 84824- 9820 Nov, [facility] [address] [place] [address] [id number] [place] [address] 82784- 9694 Oct, [facility] [address] [place] [address] [id number] [place] [address] 32548- 3147 Oct, Acquired hypothyroidism E03.9 [facility] [address] [place] [address] [id number] [place] [address] 96675- 6493 Oct, [facility] [address] [place] [address] [id number] [place] [address] 25832- 8572 Jun, RLQ abdominal pain R10.31 [facility] [address] [place] [id number] [place] [address] 11233- 8920 Jun, Sleep apnea G47.30 ; Rash R21 ; RLQ abdominal pain R10.31 and Postoperative hypothyroidism E89.0 [facility] [id number] [place] [address] 08276- 9739 May, Acquired hypothyroidism E03.9 [place] [address] [place] [address]4926- 5618 May, [place] [address] 53480- 5995 08 May, 2016 Acquired hypothyroidism E03.9 [place] [address] 98960- 7568 Mar, Acquired hypothyroidism E03.9 [place] [address] 93792- 8511 Mar, Hypertension I10 ; Acquired hypothyroidism E03.9 ; Depression F32.9 ; Anxiety F41.9 ; Sleep apnea G47.30 ; Dysuria R30.0 and Other fatigue R53.83 [place] [address] 89270- 8421 Feb, [place] [address] 87632- 8893 August, Dysthymic disorder F34.1 ; Depression F32.9 and Sleep apnea G47.30 [place] [address] [place] [id number] [place] [address] 00486- 6498 Jun, Dysthymic disorder F34.1 [place] [address] 84509- 0843 Jun, Dysthymic disorder F34.1 [place] [address] 58175- 2667 Jun, Anxiety F41.9 ; Depression F32.9 and Sleep apnea G47.30 [place] [address] [place] 18984976- 6112 Jun, Flank pain R10.9 ; Hematuria R31.9 ; Depression F32.9 ; Hypertension I10 and Sleep apnea G47.30 [place] [address] [place] [id number] [place] [address]- 2506 Jun, Dysthymic disorder F34.1 IMMUNIZATIONS No Known Immunizations SOCIAL HISTORY Never Assessed REASON FOR VISIT Medication refill request PLAN OF CARE VITAL SIGNS MEDICATIONS Medication Instructions Dosage Frequency Start Date End Date Duration Status Levothyroxine Sodium 100 MCG Orally Once a day 1 tablet 24h 30 Active RESULTS No Results PROCEDURES No Known [...]
--- OUTSIDE RECORDS SUMMARY | 2018-06-13 09:35 | XMS REPORT ---
Author Author ANGELLA ORELLANA Organization [facility] Address [address] [place] [address] Care Team Providers Care Security Software Engineer Name Role Phone ANGELLA ORELLANA Unavailable PROBLEMS Type Condition ICD9-CM Code CNX06-PN Code Onset Dates Condition Status SNOMED Code Problem Depression F32.9 Active 55201783 Problem Dysthymic disorder F34.1 Active 47673123 Problem Hypertension I10 Active 83573645 Problem S/P bilateral mastectomy Z90.13 Active 110175267 Problem IBS (irritable bowel syndrome) K58.9 Active 07824003 Problem Sleep apnea G47.30 Active 13496510 Problem Arthritis, lumbar spine M46.96 Active 840681033 Problem Restless leg G25.81 Active 45815448 Problem Acquired hypothyroidism E03.9 Active 729095080 Problem Anxiety F41.9 Active 09167696 Problem Chronic fatigue R53.82 Active 72998015 Problem Postoperative hypothyroidism E89.0 Active 55998880 ALLERGIES No Information ENCOUNTERS Encounter Location Date Diagnosis [place] [address] [place] [id number] [place] [address] 91136- 5429 Sep, [place] [address] [place] [id number] [place] [address] 00744- 3829 Jul, Acquired hypothyroidism E03.9 and Fatigue, unspecified type R53.83 [facility] [id number] [place] [address] 11275- 2522 Jul, Postoperative hypothyroidism E89.0 [place] [address] [id number] [place] [address] 42819- 1057 Jul, Postoperative hypothyroidism E89.0 [facility] [address] [id number] [place] [address] 49244- 2164 Jun, [facility] [address] [place] [address] [address]- 8250 Jun, Acquired hypothyroidism E03.9 [facility] [address] [id number] [place] [address] 33000- 0283 08 Jun, 2017 Arthritis, lumbar spine M46.96 and Acquired hypothyroidism E03.9 [facility] [address] [id number] [place] [address] 59346- 4091 Jun, [facility] [id number] [place] [address] 48438- 3538 Jun, Acquired hypothyroidism E03.9 [facility] [id number] [place] [address] 21872- 7352 Mar, Acquired hypothyroidism E03.9 [facility] [id number] [place] [address] 28397- 5773 Mar, Acquired hypothyroidism E03.9 [facility] [id number] [place] [address] 98166- 3095 Mar, [facility] [id number] [place] [address] 38086- 1121 Nov, [facility] [id number] [place] [address] 29129- 6527 Nov, Low vitamin B12 level E53.8 [facility] [id number] [place] [address] 39095- 8840 Nov, Low vitamin B12 level E53.8 [facility] [address] [id number] [place] [address] 73780- 9707 Nov, Chronic fatigue R53.82 ; Restless leg G25.81 and Postoperative hypothyroidism E89.0 [facility] [id number] [place] [address] 62745- 9675 Nov, [facility] [id number] [place] [address] 42588- 7522 Oct, [facility] [address] 09794- 8374 Oct, Acquired hypothyroidism E03.9 [facility] [id number] [place] [address] 82811- 2602 Oct, [facility] [id number] [place] [address]- 1065 Jun, RLQ abdominal pain R10.31 [facility] [address] 63727- 1131 Jun, Sleep apnea G47.30 ; Rash R21 ; RLQ abdominal pain R10.31 and Postoperative hypothyroidism E89.0 [place] [address] 76952- 8474 May, Acquired hypothyroidism E03.9 [place] [address] 43517- 5897 May, [facility] [address] 88343- 3390 May, Acquired hypothyroidism E03.9 [facility] [address] [id number] [place] [address] 58192- 4648 Mar, Acquired hypothyroidism E03.9 [place] [address] [address] [id number] [place] [address]- 7304 Mar, Hypertension I10 ; Acquired hypothyroidism E03.9 ; Depression F32.9 ; Anxiety F41.9 ; Sleep apnea G47.30 ; Dysuria R30.0 and Other fatigue R53.83 [facility] [id number] [place] [address] 56096- 6381 Feb, [place] [address] [place] [id number]- 1941 August, Dysthymic disorder F34.1 ; Depression F32.9 and Sleep apnea G47.30 [facility] [id number] [place] [address] 80811- 2760 Jun, Dysthymic disorder F34.1 [place] [address] [id number] [address]- 6957 Jun, Dysthymic disorder F34.1 [place] [address] [address]- 5900 Jun, Anxiety F41.9 ; Depression F32.9 and Sleep apnea G47.30 [place] [address] [place] [address] 50655- 0238 Jun, Flank pain R10.9 ; Hematuria R31.9 ; Depression F32.9 ; Hypertension I10 and Sleep apnea G47.30 [place] [address] [address]- 0261 Jun, Dysthymic disorder F34.1 IMMUNIZATIONS No Known Immunizations SOCIAL HISTORY Never Assessed REASON FOR VISIT lab PLAN OF CARE VITAL SIGNS MEDICATIONS Unknown [...]
--- OUTSIDE RECORDS SUMMARY | 2018-06-13 09:35 | XMS REPORT ---
Author Author ANGELLA ORELLANA Organization [employer] Address Unknown Phone Unavailable Care Team Providers Care Data Support Specialist Name Role Phone ANGELLA ORELLANA CP Unavailable Allergies No Known Allergies Problems Problem Type Condition Code Onset Dates Condition Status Problem Dysthymic disorder F34.1 Active Problem IBS (irritable bowel syndrome) K58.9 Active Problem Anxiety F41.9 Active Problem Sleep apnea G47.30 Active Problem Hypothyroid E03.9 Active Problem Depression F32.9 Active Problem Hypertension I10 Active Medications Medication Code System Code Instructions Start Date End Date Status Dosage Zoloft [facility] [address]-04 100 MG Orally Once a day June 26, 2015 1 tablet Results No Known Results Summary Purpose [employer] Submission
--- OUTSIDE RECORDS SUMMARY | 2018-06-13 09:36 | XMS REPORT | Continuity of Care Document ---
Author Author [facility] Organization [facility] Address Unknown Phone Unavailable Allergies Active Description Code Type Severity Reaction Onset Reported/Identified Relationship to Patient Clinical Status Yes NO KNOWN DRUG ALLERGIES UNKNOWN NO KNOWN DRUG ALLERG Yes No Known Drug Allergies [id number] Drug Allergy Unknown N/A 05/17/2011 Medications There is no data. 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,NEC 10/01/2010 Ot 174.9 MALIGN NEOPL BREAST NOS 05/17/2011 Ot 486 PNEUMONIA, ORGANISM NOS 05/17/2011 Ot 490 BRONCHITIS NOS 05/17/2011 Ot 786.2 COUGH 04/09/2014 MARTHA CLEMENT, JUN Ot 244.9 04/09/2014 MARTHA CLEMENT, JUN Ot 300.00 04/09/2014 MARTHA CLEMENT, JUN Ot 331.9 04/09/2014 MARTHA CLEMENT, JUN Ot 780.57 04/09/2014 MARTHA CLEMENT, JUN Ot V10.3 04/09/2014 MARTHA CLEMENT, JUN Ot V45.71 04/09/2014 MARTHA CLEMENT, JUN Ot V58.69 04/09/2014 MARTHA CLEMENT, JUN Ot V67.2 10/08/2014 Ot 244.9 10/08/2014 Ot 300.00 10/08/2014 Ot 564.00 10/08/2014 Ot 780.57 10/08/2014 Ot 786.52 10/08/2014 Ot 787.91 10/08/2014 Ot V10.3 10/08/2014 Ot V45.71 10/08/2014 Ot V58.69 10/08/2014 Ot V67.2 10/08/2014 Ot 244.9 10/08/2014 Ot V10.3 10/08/2014 Ot 244.9 10/08/2014 Ot 300.00 10/08/2014 Ot 780.57 10/08/2014 Ot 790.5 10/08/2014 Ot V10.3 10/08/2014 Ot V45.71 10/08/2014 Ot V58.69 10/08/2014 Ot V67.2 10/08/2014 Ot 174.9 10/08/2014 Ot 327.23 10/08/2014 Ot 401.9 10/08/2014 Ot V12.59 10/08/2014 Ot 244.9 10/08/2014 Ot 300.00 10/08/2014 Ot 780.57 10/08/2014 Ot 790.5 10/08/2014 Ot V10.3 10/08/2014 Ot V45.71 10/08/2014 Ot V58.69 10/08/2014 Ot V67.2 10/08/2014 Ot 244.9 10/08/2014 Ot 300.00 10/08/2014 Ot 571.8 10/08/2014 Ot 780.57 10/08/2014 Ot V10.3 10/08/2014 Ot V45.71 10/08/2014 Ot V58.69 10/08/2014 Ot V67.2 10/08/2014 MARTHA CLEMENT, [facility] Ot 244.9 10/08/2014 MARTHA CLEMENT, [facility] Ot 300.00 10/08/2014 MARTHA CLEMENT, [facility] Ot 331.9 10/08/2014 MARTHA CLEMENT, [facility] Ot 780.57 10/08/2014 MARTHA CLEMENT, [facility] Ot V10.3 10/08/2014 MARTHA CLEMENT, [facility] Ot V45.71 10/08/2014 MARTHA CLEMENT, [facility] Ot V58.69 10/08/2014 MARTHA CLEMENT, [facility] Ot V67.2 10/08/2014 MARTHA CLEMENT, [facility] Ot 244.9 10/08/2014 MARTHA CLEMENT, [facility] Ot 300.00 10/08/2014 JUN THOMAS MD Ot 331.9 10/08/2014 MARTHA CLEMENT, JUN Ot 780.57 10/08/2014 MARTHA CLEMENT, JUN Ot V10.3 10/08/2014 MARTHA CLEMENT, JUN Ot V45.71 10/08/2014 JUN THOMAS MD Ot V58.69 10/08/2014 JUN THOMAS MD Ot V67.2 06/11/2015 JEN CLEMENT, CHING Ot K58.9 IRRITABLE BOWEL SYNDROME WITHOUT DIARRHE 06/11/2015 JEN CLEMENT, CHING Ot K64.1 SECOND DEGREE HEMORRHOIDS 06/11/2015 JEN CLEMENT, CHING Ot Z85.3 PERSONAL HISTORY OF MALIGNANT NEOPLASM O 01/27/2016 Ot 327.23 OBSTRUCTIVE SLEEP APNEA (ADULT) (PEDIATR 01/27/2016 Ot 401.9 HYPERTENSION NOS 01/27/2016 Ot 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,NEC 01/27/2016 Ot 244.9 HYPOTHYROIDISM NOS 01/27/2016 Ot 300.00 ANXIETY STATE NOS 01/27/2016 Ot 780.57 UNSPECIFIED SLEEP APNEA 01/27/2016 Ot 790.5 ABN SERUM ENZY LEVEL NEC 01/27/2016 Ot V10.3 HX OF BREAST MALIGNANCY 01/27/2016 Ot V45.71 ACQUIRED ABSENCE OF BREAST AND NIPPLE 01/27/2016 Ot V58.69 OTH MED,LT, CURRENT USE 01/27/2016 Ot V67.2 CHEMOTHERAPY FOLLOW-UP 01/27/2016 Ot 244.9 HYPOTHYROIDISM NOS 01/27/2016 Ot 300.00 ANXIETY STATE NOS 01/27/2016 Ot 571.8 CHRONIC LIVER DIS NEC 01/27/2016 Ot 780.57 UNSPECIFIED SLEEP APNEA 01/27/2016 Ot V10.3 HX OF BREAST MALIGNANCY 01/27/2016 Ot V45.71 ACQUIRED ABSENCE OF BREAST AND NIPPLE 01/27/2016 Ot V58.69 OTH MED,LT, CURRENT USE 01/27/2016 Ot V67.2 CHEMOTHERAPY FOLLOW-UP 01/27/2016 JUN THOMAS MD Ot 244.9 HYPOTHYROIDISM NOS 01/27/2016 MARTHA CLEMENT, JUN Ot 300.00 ANXIETY STATE NOS 01/27/2016 MARTHA CLEMENT, JUN Ot 331.9 CEREB DEGENERATION NOS 01/27/2016 JUN THOMAS MD Ot 780.57 UNSPECIFIED SLEEP APNEA 01/27/2016 JUN THOMAS MD Ot V10.3 HX OF BREAST MALIGNANCY 01/27/2016 JUN THOMAS MD Ot V45.71 ACQUIRED ABSENCE OF BREAST AND NIPPLE 01/27/2016 JUN THOMAS MD Ot V58.69 OTH MED,LT,CURRENT USE 01/27/2016 JNU THOMAS MD Ot V67.2 CHEMOTHERAPY FOLLOW-UP 01/27/2016 JUN THOMAS MD Ot 244.9 HYPOTHYROIDISM NOS 01/27/2016 JUN THOMAS MD Ot 300.00 ANXIETY STATE NOS 01/27/2016 JUN THOMAS MD Ot 331.9 CEREB DEGENERATION NOS 01/27/2016 JUN THOMAS MD Ot 780.57 UNSPECIFIED SLEEP APNEA 01/27/2016 JUN THOMAS MD Ot V10.3 HX OF BREAST MALIGNANCY 01/27/2016 JUN THOMAS MD Ot V45.71 ACQUIRED ABSENCE OF BREAST AND NIPPLE 01/27/2016 JUN THOMAS MD Ot V58.69 OTH MED,LT,CURRENT USE 01/27/2016 JUN THOMAS MD Ot V67.2 CHEMOTHERAPY FOLLOW-UP 01/27/2016 JEN CLEMENT, CHING Ot Z01.818 ENCOUNTER FOR OTHER PREPROCEDURAL EXAMIN 03/03/2016 Ot 327.23 OBSTRUCTIVE SLEEP APNEA (ADULT) (PEDIATR 03/03/2016 Ot 401.9 HYPERTENSION NOS 03/03/2016 Ot 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,NEC 03/03/2016 Ot 244.9 HYPOTHYROIDISM NOS 03/03/2016 Ot 300.00 ANXIETY STATE NOS 03/03/2016 Ot 780.57 UNSPECIFIED SLEEP APNEA 03/03/2016 Ot 790.5 ABN SERUM ENZY LEVEL NEC 03/03/2016 Ot V10.3 HX OF BREAST MALIGNANCY 03/03/2016 Ot V45.71 ACQUIRED ABSENCE OF BREAST AND NIPPLE 03/03/2016 Ot V58.69 OTH MED,LT, CURRENT USE 03/03/2016 Ot V67.2 CHEMOTHERAPY FOLLOW-UP 03/03/2016 Ot 244.9 HYPOTHYROIDISM NOS 03/03/2016 Ot 300.00 ANXIETY STATE NOS 03/03/2016 Ot 571.8 CHRONIC LIVER DIS NEC 03/03/2016 Ot 780.57 UNSPECIFIED SLEEP APNEA 03/03/2016 Ot V10.3 HX OF BREAST MALIGNANCY 03/03/2016 Ot V45.71 ACQUIRED ABSENCE OF BREAST AND NIPPLE 03/03/2016 Ot V58.69 OTH MED,LT, CURRENT USE 03/03/2016 Ot V67.2 CHEMOTHERAPY FOLLOW-UP 03/03/2016 JUN THOMAS MD Ot 244.9 HYPOTHYROIDISM NOS 03/03/2016 JUN THOMAS MD Ot 300.00 ANXIETY STATE NOS 03/03/2016 JUN THOMAS MD Ot 331.9 CEREB DEGENERATION NOS 03/03/2016 JUN THOMAS MD Ot 780.57 UNSPECIFIED SLEEP APNEA 03/03/2016 JUN THOMAS MD Ot V10.3 HX OF BREAST MALIGNANCY 03/03/2016 JUN THOMAS MD Ot V45.71 ACQUIRED ABSENCE OF BREAST AND NIPPLE 03/03/2016 JUN THOMAS MD Ot V58.69 OTH MED,LT,CURRENT USE 03/03/2016 JUN THOMAS MD Ot V67.2 CHEMOTHERAPY FOLLOW-UP 03/03/2016 JUN THOMAS MD Ot 244.9 HYPOTHYROIDISM NOS 03/03/2016 JUN THOMAS MD Ot 300.00 ANXIETY STATE NOS 03/03/2016 JUN THOMAS MD Ot 331.9 CEREB DEGENERATION NOS 03/03/2016 JUN THOMAS MD Ot 780.57 UNSPECIFIED SLEEP APNEA 03/03/2016 UJN THOMAS MD Ot V10.3 HX OF BREAST MALIGNANCY 03/03/2016 JUN THOMAS MD Ot V45.71 ACQUIRED ABSENCE OF BREAST AND NIPPLE 03/03/2016 JUN THOMAS MD Ot V58.69 OTH MED,LT,CURRENT USE 03/03/2016 JUN THOMAS MD Ot V67.2 CHEMOTHERAPY FOLLOW-UP 03/03/2016 JEN CLEMENT, CHING Ot Z01.818 ENCOUNTER FOR OTHER PREPROCEDURAL EXAMIN 03/29/2016 Ot 244.9 HYPOTHYROIDISM NOS 03/29/2016 Ot 300.00 ANXIETY STATE NOS 03/29/2016 Ot 780.57 UNSPECIFIED SLEEP APNEA 03/29/2016 Ot 790.5 ABN SERUM ENZY LEVEL NEC 03/29/2016 Ot V10.3 HX OF BREAST MALIGNANCY 03/29/2016 Ot V45.71 ACQUIRED ABSENCE OF BREAST AND NIPPLE 03/29/2016 Ot V58.69 OTH MED,LT, CURRENT USE 03/29/2016 Ot V67.2 CHEMOTHERAPY FOLLOW-UP 03/29/2016 Ot 244.9 HYPOTHYROIDISM NOS 03/29/2016 Ot 300.00 ANXIETY STATE NOS 03/29/2016 Ot 571.8 CHRONIC LIVER DIS NEC 03/29/2016 Ot 780.57 UNSPECIFIED SLEEP APNEA 03/29/2016 Ot V10.3 HX OF BREAST MALIGNANCY 03/29/2016 Ot V45.71 ACQUIRED ABSENCE OF BREAST AND NIPPLE 03/29/2016 Ot V58.69 OTH MED,LT, CURRENT USE 03/29/2016 Ot V67.2 CHEMOTHERAPY FOLLOW-UP 03/29/2016 JUN THOMAS MD Ot 244.9 HYPOTHYROIDISM NOS 03/29/2016 MARTHA CLEMENT, JUN Ot 300.00 ANXIETY STATE NOS 03/29/2016 JUN THOMAS MD Ot 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.9 CEREB DEGENERATION NOS 03/29/2016 JUN THOMAS MD Ot 780.57 UNSPECIFIED SLEEP APNEA 03/29/2016 JUN THOMAS MD Ot V10.3 HX OF BREAST MALIGNANCY 03/29/2016 JUN THOMAS MD Ot V45.71 ACQUIRED ABSENCE OF BREAST AND NIPPLE 03/29/2016 JUN THOMAS MD Ot V58.69 OTH MED,LT,CURRENT USE 03/29/2016 JUN THOMAS MD Ot V67.2 CHEMOTHERAPY FOLLOW-UP 03/29/2016 JUN THOMAS MD Ot 244.9 HYPOTHYROIDISM NOS 03/29/2016 JUN THOMAS MD Ot 300.00 ANXIETY STATE NOS 03/29/2016 JUN THOMAS MD Ot 331.9 CEREB DEGENERATION NOS 03/29/2016 JUN THOMAS MD Ot 780.57 UNSPECIFIED SLEEP APNEA 03/29/2016 JUN THOMAS MD Ot V10.3 HX OF BREAST MALIGNANCY 03/29/2016 JUN THOMAS MD Ot V45.71 ACQUIRED ABSENCE OF BREAST AND NIPPLE 03/29/2016 JUN THOMAS MD Ot V58.69 OTH MED,LT,CURRENT USE 03/29/2016 JUN THOMAS MD Ot V67.2 CHEMOTHERAPY FOLLOW-UP 03/29/2016 CHING LI MD Ot Z01.818 ENCOUNTER FOR OTHER PREPROCEDURAL EXAMIN 08/29/2017 JUN THOMAS MD, Ot E03.9 HYPOTHYROIDISM, UNSPECIFIED 08/29/2017 JUN THOMAS MD, Ot E66.9 OBESITY, UNSPECIFIED 08/29/2017 JUN THOMAS MD, Ot F41.9 ANXIETY DISORDER, UNSPECIFIED 08/29/2017 JUN THOMAS MD, Ot G47.30 SLEEP APNEA, UNSPECIFIED 08/29/2017 JUN THOMAS MD, Ot I10 ESSENTIAL (PRIMARY) HYPERTENSION 08/29/2017 JUN THOMAS MD, Ot K76.0 FATTY (CHANGE OF) LIVER, NOT ELSEWHERE C 08/29/2017 JUN THOMAS MD, Ot M25.551 PAIN IN RIGHT HIP 08/29/2017 JUN THOMAS MD, Ot R10.31 RIGHT LOWER QUADRANT PAIN 08/29/2017 JUN THOMAS MD, Ot Z08 ENCNTR FOR FOLLOW-UP EXAM AFTER TRTMT FO 08/29/2017 JUN THOMAS MD, Ot Z68.33 BODY MASS INDEX (BMI) 33.0-33.9, ADULT 08/29/2017 JUN THOMAS MD, Ot Z79.899 OTHER [employer] (CURRENT) DRUG THERAPY 08/29/2017 JUN THOMAS MD, Ot Z85.3 PERSONAL HISTORY OF MALIGNANT NEOPLASM O 08/29/2017 JUN THOMAS MD, Ot Z90.12 ACQUIRED ABSENCE OF LEFT BREAST AND NIPP 08/29/2017 JUN THOMAS MD, Ot Z98.82 BREAST IMPLANT STATUS 12/01/2017 Krista Grigsby W 244.9 UNSPECIFIED HYPOTHYROIDISM 12/01/2017 Krista Grigsby W 311 DEPRESSIVE DISORDER, NOT ELSEWHERE CLASSIFIED 12/01/2017 Krista Grigsby W 564.1 IRRITABLE BOWEL SYNDROME 12/01/2017 Krista Grigsby W 780.57 UNSPECIFIED SLEEP APNEA 12/01/2017 Krista Grigsby W 780.79 OTHER MALAISE AND FATIGUE 12/01/2017 Krista Grigsby E03.9 HYPOTHYROIDISM, UNSPECIFIED 12/01/2017 Krista Grigsby F32.9 MAJOR DEPRESSIVE DISORDER, SINGLE EPISODE, UNSPECIFIED 12/01/2017 Krista Grigsby G47.33 OBSTRUCTIVE SLEEP APNEA (ADULT) (PEDIATRIC) 12/01/2017 Krista Grigsby W 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 12/01/2017 Calista, Krista W R53.83 OTHER FATIGUE 12/01/2017 Calista, Krista W 244.9 UNSPECIFIED HYPOTHYROIDISM 12/01/2017 Calista, Krista W 311 DEPRESSIVE DISORDER, NOT ELSEWHERE CLASSIFIED 12/01/2017 Calista, Krista W 564.1 IRRITABLE BOWEL SYNDROME 12/01/2017 Calista, Krista W 780.57 UNSPECIFIED SLEEP APNEA 12/01/2017 Calista, Krista W 780.79 OTHER MALAISE AND FATIGUE 12/01/2017 Krista Grigsby W E03.9 HYPOTHYROIDISM, UNSPECIFIED 12/01/2017 Calista, Krista W F32.9 MAJOR DEPRESSIVE DISORDER, SINGLE EPISODE, UNSPECIFIED 12/01/2017 Krista Grigsby W G47.33 OBSTRUCTIVE SLEEP APNEA (ADULT) (PEDIATRIC) 12/01/2017 Krista Grigsby W 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 12/01/2017 Krista Grigsby W R53.83 OTHER FATIGUE 01/17/2018 PAYTON, OCLT [employer] FINANCE BUSINESS MANAGER Ot G47.10 HYPERSOMNIA, UNSPECIFIED 01/17/2018 PAYTON, COLT E FINANCE BUSINESS MANAGER Ot G47.33 OBSTRUCTIVE SLEEP APNEA (ADULT) (PEDIATR 01/17/2018 PAYTON, COLT [employer] FINANCE BUSINESS MANAGER Ot G47.50 PARASOMNIA, UNSPECIFIED 01/17/2018 PAYTON, COLT E FINANCE BUSINESS MANAGER Ot R06.02 SHORTNESS OF BREATH 01/17/2018 PAYTON, COLT E FINANCE BUSINESS MANAGER Ot Z78.9 OTHER SPECIFIED HEALTH STATUS 01/18/2018 PAYTON, COLT E FINANCE BUSINESS MANAGER Ot G47.10 HYPERSOMNIA, UNSPECIFIED 01/18/2018 PAYTON, COLT E FINANCE BUSINESS MANAGER Ot G47.33 OBSTRUCTIVE SLEEP APNEA (ADULT) (PEDIATR 01/18/2018 PAYTON, COLT E FINANCE BUSINESS MANAGER Ot G47.50 PARASOMNIA, UNSPECIFIED 01/18/2018 PAYTON, COLT E FINANCE BUSINESS MANAGER Ot R06.02 SHORTNESS OF BREATH 01/18/2018 PAYTON, COLT E FINANCE BUSINESS MANAGER Ot Z78.9 OTHER SPECIFIED HEALTH STATUS 03/21/2018 PAYTON, [employer]T [employer] FINANCE BUSINESS MANAGER Ot E66.9 OBESITY, UNSPECIFIED 03/21/2018 PAYTON, COLT E FINANCE BUSINESS MANAGER Ot F39 UNSPECIFIED MOOD [AFFECTIVE] DISORDER 03/21/2018 PAYTONALEXISCOLT E FINANCE BUSINESS MANAGER Ot F41.9 ANXIETY DISORDER, UNSPECIFIED 03/21/2018 PAYTON [employer] MANAGER Ot G47.10 HYPERSOMNIA, UNSPECIFIED 03/21/2018 PAYTON [employer]T [employer] FINANCE BUSINESS MANAGER Ot G47.30 SLEEP APNEA, UNSPECIFIED 03/21/2018 PAYTON COLT [employer] FINANCE BUSINESS MANAGER Ot G47.50 PARASOMNIA, UNSPECIFIED 03/21/2018 PAYTON COLT [employer] FINANCE BUSINESS MANAGER Ot R06.02 SHORTNESS OF BREATH 03/23/2018 Calista, Krista W 244.9 UNSPECIFIED HYPOTHYROIDISM 03/23/2018 Calista, Krista W 296.30 MAJOR DEPRESSIVE DISORDER, RECURRENT EPISODE, UNSPECIFIED DEGREE 03/23/2018 Calista, Krista W 300.00 ANXIETY STATE, UNSPECIFIED 03/23/2018 Calista, Krista W 401.9 UNSPECIFIED ESSENTIAL HYPERTENSION 03/23/2018 Calista, Krista W 564.1 03/23/2018 Calista, Krista W 729.1 03/23/2018 Calista, Krista W 780.57 UNSPECIFIED SLEEP APNEA 03/23/2018 Calista, Krista W 780.79 03/23/2018 Calista, Krista W 782.0 03/23/2018 Calista, Krista W E03.9 HYPOTHYROIDISM, UNSPECIFIED 03/23/2018 Calista, Krista W F33.9 MAJOR DEPRESSIVE DISORDER, RECURRENT, UNSPECIFIED 03/23/2018 Calista, Krista W F41.9 ANXIETY DISORDER, UNSPECIFIED 03/23/2018 Calista, Krista W G47.33 OBSTRUCTIVE SLEEP APNEA (ADULT) (PEDIATRIC) 03/23/2018 Calista, Krista W I10 ESSENTIAL (PRIMARY) HYPERTENSION 03/23/2018 Calista, Krista W 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 03/23/2018 Calista, Krista W M79.7 FIBROMYALGIA 03/23/2018 Calista, Krista W R20.0 ANESTHESIA OF SKIN 03/23/2018 Calista, Krista W R53.1 WEAKNESS 03/23/2018 Calista, Krista W 244.9 UNSPECIFIED HYPOTHYROIDISM 03/23/2018 Calista, Krista W 296.30 03/23/2018 Calista, Krista W 300.00 03/23/2018 Calista, Krista W 401.9 03/23/2018 Calista, Krista W 564.1 03/23/2018 Calista, Krista W 729.1 03/23/2018 Calista, Krista W 780.57 03/23/2018 Calista, Krista W 780.79 03/23/2018 Calista, Krista W 782.0 03/23/2018 Calista, Krista W E03.9 HYPOTHYROIDISM, UNSPECIFIED 03/23/2018 Calista, Krista W F33.9 MAJOR DEPRESSIVE DISORDER, RECURRENT, UNSPECIFIED 03/23/2018 Calista, Krista W F41.9 ANXIETY DISORDER, UNSPECIFIED 03/23/2018 Calista, Krista W G47.33 OBSTRUCTIVE SLEEP APNEA (ADULT) (PEDIATRIC) 03/23/2018 Calista, Krista W I10 ESSENTIAL (PRIMARY) HYPERTENSION 03/23/2018 Calista, Krista W 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 03/23/2018 Calista, Krista W M79.7 FIBROMYALGIA 03/23/2018 Calista, Krista W R20.0 ANESTHESIA OF SKIN 03/23/2018 Calista, Krista W R53.1 WEAKNESS 04/12/2018 PAYTON, COLT [employer]ANCE BUSINESS MANAGER Ot E66.9 OBESITY, UNSPECIFIED 04/12/2018 PAYTON, COLT E FINANCE BUSINESS MANAGER Ot F39 UNSPECIFIED MOOD [AFFECTIVE] DISORDER 04/12/2018 PAYTON, COLT E FINANCE BUSINESS MANAGER Ot F41.9 ANXIETY DISORDER, UNSPECIFIED 04/12/2018 PAYTON, COLT E FINANCE BUSINESS MANAGER Ot G47.10 HYPERSOMNIA, UNSPECIFIED 04/12/2018 PAYTON, COLT E FINANCE BUSINESS MANAGER Ot G47.30 SLEEP APNEA, UNSPECIFIED 04/12/2018 PAYTON, [employer]T [employer] FINANCE BUSINESS MANAGER Ot G47.50 PARASOMNIA, UNSPECIFIED 04/12/2018 PAYTON [employer]T [employer] FINANCE BUSINESS MANAGER Ot R06.02 SHORTNESS OF BREATH 06/05/2018 Mcguire, Elina-Bhavin W 575.10 CHOLECYSTITIS, UNSPECIFIED 06/05/2018 Mcguire, Elina-Bhavin W 789.01 ABDOMINAL PAIN, RIGHT UPPER QUADRANT 06/05/2018 Mcguire, Elina-Bhavin W K81.9 CHOLECYSTITIS, UNSPECIFIED 06/05/2018 Mcguire, Elina-Bhavin W R10.11 RIGHT UPPER QUADRANT PAIN 06/05/2018 Mcguire, Elina-Bhavin W 244.9 UNSPECIFIED HYPOTHYROIDISM 06/05/2018 Mcguire, Elina-Bhavin W 575.10 CHOLECYSTITIS, UNSPECIFIED 06/05/2018 Myanor, Bashir W 789.01 ABDOMINAL PAIN, RIGHT UPPER QUADRANT 06/05/2018 Maynor, Bashir W E03.9 HYPOTHYROIDISM, UNSPECIFIED 06/05/2018 Maynor, Bashir W K81.9 CHOLECYSTITIS, UNSPECIFIED 06/05/2018 Maynor, Bashir W R10.11 RIGHT UPPER QUADRANT PAIN 06/05/2018 Maynor, Suzanneu W 244.9 UNSPECIFIED HYPOTHYROIDISM 06/05/2018 Maynor, Suzanneu W 575.10 CHOLECYSTITIS, UNSPECIFIED 06/05/2018 Maynor, Suzanneu W 789.01 ABDOMINAL PAIN, RIGHT UPPER QUADRANT 06/05/2018 Maynor, Suzanneu W E03.9 HYPOTHYROIDISM, UNSPECIFIED 06/05/2018 Maynor, Bashir W K81.9 CHOLECYSTITIS, UNSPECIFIED 06/05/2018 Maynor, Suzanneu W R10.11 RIGHT UPPER QUADRANT PAIN Procedures There is no data. Results Test Result Range CBC With Differential/Platelet - 03/23/16 17:48 WBC 7.7 x10E3/uL 3.4-10.8 RBC 4.99 x10E6/uL 3.77-5.28 Hemoglobin 13.9 g/dL 11.1-15.9 Hematocrit 41.7 % 34.0-46.6 MCV 84 fL 79-97 MCH 27.9 pg 26.6-33.0 MCHC 33.3 g/dL 31.5-35.7 RDW 13.2 % 12.3-15.4 Platelets 304 x10E3/uL 150-379 Neutrophils 61 % Lymphs 28 % Monocytes 8 % Eos 3 % Basos 0 % Neutrophils (Absolute) 4.7 x10E3/uL 1.4-7.0 Lymphs (Absolute) 2.1 x10E3/uL 0.7-3.1 Monocytes(Absolute) 0.6 x10E3/uL 0.1-0.9 Eos (Absolute) 0.2 x10E3/uL 0.0-0.4 Baso (Absolute) 0.0 x10E3/uL 0.0-0.2 Immature Granulocytes 0 % Immature Grans (Abs) 0.0 x10E3/uL 0.0-0.1 Comp. Metabolic Panel (14) - 03/23/16 17:48 Glucose, Serum 94 mg/dL 65-99 BUN 13 mg/dL 6-24 Creatinine, Serum 0.85 mg/dL 0.57-1.00 eGFR If NonAfricn Am 77 mL/min/1.73 >59 eGFR If Africn Am 89 mL/min/1.73 >59 BUN/Creatinine Ratio 15 9-23 Sodium, Serum 146 mmol/L 136-144 Potassium, Serum 3.7 mmol/L 3.5-5.2 Chloride, Serum 100 mmol/L 97-106 Carbon Dioxide, Total 26 mmol/L 18-29 Calcium, Serum 9.4 mg/dL 8.7-10.2 Protein, Total, Serum 7.4 g/dL 6.0-8.5 Albumin, Serum 4.5 g/dL 3.5-5.5 Globulin, Total 2.9 g/dL 1.5-4.5 A/G Ratio 1.6 1.1-2.5 Bilirubin, Total 0.5 mg/dL 0.0-1.2 Alkaline Phosphatase, S 101 IU/L 39-117 AST (SGOT) 15 IU/L 0-40 ALT (SGPT) 13 IU/L 0-32 TSH - 03/23/16 17:48 TSH 0.025 uIU/mL 0.450-4.500 TSH - 05/26/16 09:30 TSH 0.054 uIU/mL 0.450-4.500 TSH+Free T4 - 07/08/16 09:48 TSH 1.540 uIU/mL 0.450-4.500 T4,Free(Direct) 1.10 ng/dL 0.82-1.77 TSH - 11/03/16 09:47 TSH 7.680 uIU/mL 0.450-4.500 Thyroxine (T4) Free, Direct, S - 11/03/16 09:47 T4,Free(Direct) 0.94 ng/dL 0.82-1.77 Written Authorization - 11/03/16 09:47 Written Authorization Comment CBC With Differential/Platelet - 11/24/16 14:18 WBC 6.4 x10E3/uL 3.4-10.8 RBC 4.55 x10E6/uL 3.77-5.28 Hemoglobin 13.0 g/dL 11.1-15.9 Hematocrit 39.1 % 34.0-46.6 MCV 86 fL 79-97 MCH 28.6 pg 26.6-33.0 MCHC 33.2 g/dL 31.5-35.7 RDW 13.4 % 12.3-15.4 Platelets 296 x10E3/uL 150-379 Neutrophils 61 % Lymphs 29 % Monocytes 8 % Eos 2 % Basos 0 % Neutrophils (Absolute) 3.9 x10E3/uL 1.4-7.0 Lymphs (Absolute) 1.9 x10E3/uL 0.7-3.1 Monocytes(Absolute) 0.5 x10E3/uL 0.1-0.9 Eos (Absolute) 0.1 x10E3/uL 0.0-0.4 Baso (Absolute) 0.0 x10E3/uL 0.0-0.2 Immature Granulocytes 0 % Immature Grans (Abs) 0.0 x10E3/uL 0.0-0.1 Comp. Metabolic Panel (14) - 11/24/16 14:18 Glucose, Serum 82 mg/dL 65-99 BUN 11 mg/dL 6-24 Creatinine, Serum 0.84 mg/dL 0.57-1.00 eGFR If NonAfricn Am 77 mL/min/1.73 >59 eGFR If Africn Am 89 mL/min/1.73 >59 BUN/Creatinine Ratio 13 9-23 Sodium, Serum 141 mmol/L 134-144 Potassium, Serum 3.8 mmol/L 3.5-5.2 Chloride, Serum 101 mmol/L 96-106 Carbon Dioxide, Total 23 mmol/L 18-29 Calcium, Serum 9.0 mg/dL 8.7-10.2 Protein, Total, Serum 7.7 g/dL 6.0-8.5 Albumin, Serum 4.7 g/dL 3.5-5.5 Globulin, Total 3.0 g/dL 1.5-4.5 A/G Ratio 1.6 1.2-2.2 Bilirubin, Total 0.6 mg/dL 0.0-1.2 Alkaline Phosphatase, S 81 IU/L 39-117 AST (SGOT) 22 IU/L 0-40 ALT (SGPT) 16 IU/L 0-32 Folate (Folic Acid), Serum - 11/24/16 14:18 Folate (Folic Acid), Serum 16.4 ng/mL >3.0 Vitamin D, 25-Hydroxy - 11/24/16 14:18 Vitamin D, 25-Hydroxy 14.4 ng/mL 30.0-100.0 Vitamin B12 - 11/24/16 14:18 Vitamin B12 297 pg/mL 211-946 Ferritin, Serum - 11/24/16 14:18 Ferritin, Serum 82 ng/mL 15-150 No Test Indicated - 11/29/16 08:49 . Comment Dear Doctor, Comment Methylmalonic Acid, Serum - 11/29/16 08:49 Methylmalonic Acid, Serum 181 nmol/L 0-378 Homocyst(e)ine, Plasma - 11/29/16 08:49 Homocyst(e)ine, Plasma 10.2 umol/L 0.0-15.0 TSH w/ FREE T4 - 04/06/17 09:09 TSH 7.30 mIU/L 0.40-4.50 T4, FREE 1.2 ng/dL 0.8-1.8 T4 FREE - 06/17/17 09:01 T4, FREE 1.0 ng/dL 0.8-1.8 Free T4 - 12/01/17 12:10 Free T4 1.02 ng/dL 0.81-1.61 Thyroid Stimulating Hormone - 12/01/17 12:10 TSH 2.73 mIU/mL 0.32-5.00 Thyroid Stimulating Hormone - 01/23/18 09:29 TSH 6.07 mIU/mL 0.32-5.00 Complete blood count (CBC) with automated white blood cell (WBC) differential - 03/20/18 09:25 Blood leukocytes automated count (number/volume) 5.8 10*3/uL 4.3-11.0 Blood erythrocytes automated count (number/volume) 4.74 10*6/uL 4.35-5.85 Venous blood hemoglobin measurement (mass/volume) 13.5 g/dL 11.5-16.0 Blood hematocrit (volume fraction) 42 % 35-52 Automated erythrocyte mean corpuscular volume 88 [foz_us] 80-99 Automated erythrocyte mean corpuscular hemoglobin (mass per erythrocyte) 29 pg 25-34 Automated erythrocyte mean corpuscular hemoglobin concentration measurement ( mass/volume) 32 g/dL 32-36 Automated erythrocyte distribution width ratio 13.1 % 10.0-14.5 Automated blood platelet count (count/volume) 225 10*3/uL 130-400 Automated blood platelet mean volume measurement 11.1 [foz_us] 7.4-10.4 Automated blood neutrophils/100 leukocytes 62 % 42-75 Automated blood lymphocytes/100 leukocytes 27 % 12-44 Blood monocytes/100 leukocytes 7 % 0-12 Automated blood eosinophils/100 leukocytes 3 % 0-10 Automated blood basophils/100 leukocytes 1 % 0-10 Blood neutrophils automated count (number/volume) 3.6 10*3 1.8-7.8 Blood lymphocytes automated count (number/volume) 1.6 10*3 1.0-4.0 Blood monocytes automated count (number/volume) 0.4 10*3 0.0-1.0 Automated eosinophil count 0.2 10*3/uL 0.0-0.3 Automated blood basophil count (count/volume) 0.0 10*3/uL 0.0-0.1 Comprehensive metabolic panel - 03/20/18 09:25 Serum or plasma sodium measurement (moles/volume) 141 mmol/L 135-145 Serum or plasma potassium measurement (moles/volume) 4.1 mmol/L 3.6-5.0 Serum or plasma chloride measurement (moles/volume) 107 mmol/L 98-107 Carbon dioxide 23 mmol/L 21-32 Serum or plasma anion gap determination (moles/volume) 11 mmol/L 5-14 Serum or plasma urea nitrogen measurement (mass/volume) 13 mg/dL 7-18 Serum or plasma creatinine measurement (mass/volume) 0.81 mg/dL 0.60-1.30 Serum or plasma urea nitrogen/creatinine mass ratio 16 NRG Serum or plasma creatinine measurement with calculation of estimated glomerular filtration rate > NRG Serum or plasma glucose measurement (mass/volume) 95 mg/dL 70-105 Serum or plasma calcium measurement (mass/volume) 9.4 mg/dL 8.5-10.1 Serum or plasma total bilirubin measurement (mass/volume) 0.7 mg/dL 0.1-1.0 Serum or plasma alkaline phosphatase measurement (enzymatic activity/volume) 71 U/L 40-136 Serum or plasma aspartate aminotransferase measurement (enzymatic activity/ volume) 20 U/L 5-34 Serum or plasma alanine aminotransferase measurement (enzymatic activity/volume ) 18 U/L 0-55 Serum or plasma protein measurement (mass/volume) 7.4 g/dL 6.4-8.2 Serum or plasma albumin measurement (mass/volume) 4.4 g/dL 3.2-4.5 CALCIUM CORRECTED 9.1 mg/dL 8.5-10.1 Serum or plasma phosphate measurement (mass/volume) - 03/20/18 09:25 Serum or plasma phosphate measurement (mass/volume) 3.5 mg/dL 2.3-4.7 Magnesium - 03/20/18 09:25 Magnesium 2.5 mg/dL 1.8-2.4 THYROID STIMULATING HORMONE - 03/20/18 09:25 THYROID STIMULATING HORMONE 7.15 u[iU]/mL 0.35-4.94 Serum or plasma thyroxine (T4) free measurement (mass/volume) - 03/20/18 09:25 Serum or plasma thyroxine (T4) free measurement (mass/volume) 0.99 ng/dL 0.70-1.48 TRIIODOTHRYONINE T3 FREE - 03/20/18 09:25 TRIIODOTHYRONINE T3 FREE 2.22 pg/mL 1.71-3.71 Ferritin - 03/23/18 09:45 Ferritin 67.93 ng/mL 4.63-204.00 Thyroid Stimulating Hormone - 06/05/18 10:42 TSH 2.92 mIU/mL 0.32-5.00 Free T4 - 06/05/18 10:42 Free T4 0.96 ng/dL 0.81-1.61 Encounters ACCT No. Visit Date/Time Discharge Status Pt. Type Provider Facility Loc./Unit Complaint [id number] 06/12/2018 06:11:00 06/12/2018 11:59:00 DIS Outpatient CHING LI MD [facility] PREOP [place] [id number] 05/30/2018 09:14:00 05/30/2018 23:59:59 CLS Outpatient JUN THOMAS MD [facility] ONC [id number] 03/20/2018 09:08:00 03/20/2018 23:59:59 CLS Outpatient COLT CAIN APRN [facility] LAB R06.02 [id number] 01/16/2018 21:00:00 01/17/2018 06:30:00 DIS Outpatient COLT CAIN APRN [facility] SLEEP SLEEP APNEA,SOB ON EXERTION [id number] 05/31/2017 09:06:00 08/29/2017 00:01:00 DIS Outpatient JUN THOMAS MD [facility] ONC [id number] 06/11/2015 08:40:00 06/11/2015 11:15:00 DIS Outpatient CHING LI MD [facility] SDC ABD PAIN,DIARRHEA [id number] 06/06/2015 05:36:00 06/06/2015 23:59:59 CLS Outpatient CHING LI MD [facility] PREOP ABD PAIN,DIARRHEA [id number] 03/19/2015 10:13:00 03/19/2015 23:59:59 CLS Preadmit JUN THOMAS MD [facility] ONC [id number] 10/20/2014 12:14:00 10/20/2014 23:59:59 CLS Outpatient GREGORIO HERR APRN [facility] QUICK [id number] 03/20/2014 13:24:00 03/20/2014 23:59:59 CLS Outpatient JUN THOMAS MD [facility] ONC [id number] 03/21/2013 14:10:00 03/21/2013 23:59:59 CLS Outpatient JUN THOMAS MD [facility] ONC [id number] 06/13/2018 12:00:00 PEN Preadmit CHING LI MD [facility] SDC GALLSTONES [id number] 10/08/2014 11:47:00 Document Registration [id number] 10/08/2014 11:47:00 Document Registration [id number] 10/08/2014 11:47:00 Document Registration [id number] 10/08/2014 11:47:00 Document Registration [id number] 10/08/2014 11:47:00 Document Registration [id number] 05/17/2011 20:54:00 Document Registration [id number] 01/26/2011 12:54:00 Document Registration [id number] 09/28/2010 21:00:00 Document Registration [id number] 07/23/2010 08:15:00 Document Registration [id number] 09/03/2009 09:15:00 Document Registration [id number] 03/05/2009 09:13:00 Document Registration [id number] 11/30/2016 18:08:00 Document Registration [id number] 05/27/2016 09:12:00 Document Registration [id number] 11/04/2016 08:40:00 Document Registration [id number] 12/03/2016 14:08:00 Document Registration [id number] 08/05/2017 09:00:00 08/05/2017 23:59:59 CLS Outpatient ANGELLA ORELLANA APRN [facility] [id number] 06/17/2017 09:00:00 Document Registration [id number] 04/06/2017 08:20:00 Document Registration [id number] 11/25/2016 08:40:00 Document Registration [id number] 07/09/2016 09:12:00 Document Registration [id number] 11/09/2016 08:06:00 Document Registration [id number] 06/05/2018 09:11:00 06/05/2018 23:59:00 DIS Outpatient Bashir Mcguire [id number] 03/23/2018 13:25:00 03/23/2018 23:59:00 DIS Outpatient CalistaKrista [id number] 01/23/2018 09:28:00 01/23/2018 23:59:00 DIS Outpatient Calista, Krista [id number] 12/01/2017 12:10:00 12/01/2017 23:59:00 DIS Outpatient Calista, Krista [id number] 03/24/2016 10:05:00 Document Registration
--- NOTE | 2018-06-13 09:37 | Progress Note-Pre Operative ---
Pre-Operative Progress Note H&P Reviewed The H&P was reviewed, patient examined and no changes noted. Date Seen by Provider: Jun 13, 2018 Time Seen by Provider: 09:35 Date H&P Reviewed: Jun 13, 2018 Time H&P Reviewed: 08:55 Pre-Operative Diagnosis: Chronic Calculous cholecystitis ALTON BARRAGAN APRN Jun 13, 2018 09:37
[2018-06-13] MEDS ORDERED: HYDR-3816 PO (09:39)
--- NOTE | 2018-06-13 09:40 | Discharge Inst-Surgical ---
D/C Lap Instructions-KIDO New, Converted, or Re-Newed RX: RX on Chart Follow Up Appt in 2 weeks Activity as tolerated No driving for 24 hours No driving while on pain medications Incentive Spirometry use every 2 hours while awake Regular Diet Symptoms to Report: Fever over 101 degree F, Nausea/Vomiting Infection Signs and Symptoms to report: Increased redness, Foul odor of wound, Increased drainage Bathing instructions: May shower Operative Area Clean/Dry; Keep incision clean/dry If any problems/questions: Contact your physician or go to Emergency Room ALTON BARRAGAN APRN Jun 13, 2018 09:40
[2018-06-13] MEDS ORDERED: ACETAMINOPHEN 325 MG TABLET PO PRN (09:45)
[2018-06-13] MEDS ORDERED: morphine INJ 10 MG/ML 1ML (SYR OR VIAL) IVP PRN (09:45)
[2018-06-13] MEDS ORDERED: HYDROcodone/APAP 5 MG/325 MG (LORTAB) TAB PO ONE (09:45)
[2018-06-13] MEDS ORDERED: ONDANSETRON 4 MG/2 ML (SDV) Z0FRAN IVP PRN ×2 (09:45→13:00)
[2018-06-13] MEDS ORDERED: ceFAZolin 2 GM IV Premixed 50 ML IV ONE (10:30)
[2018-06-13] MEDS ORDERED: BUP/EPI 0.5% 1:200,000 (SENSORCAINE) 30 ML VIAL ONE (10:32)
[2018-06-13] MEDS: LACTATED RINGERS 1,000 ML IV PRN ×2 (10:35→12:29)
[2018-06-13] MEDS ORDERED: DEXAMETHASONE 10 MG/ML (DECADRON) 1 ML VIAL ONE (10:41)
[2018-06-13] MEDS ORDERED: ROCURONIUM 10 MG/ML 5 ML SYRINGE IV ONE (10:41)
[2018-06-13] MEDS ORDERED: proPOfol 200 MG/20 ML (DIPRIVAN) VIAL IV ONE (10:41)
[2018-06-13] MEDS ORDERED: LIDOCAINE PF 2% 5 ML (XYLOCAINE) VIAL ONE ×2 (10:41→12:38)
[2018-06-13] MEDS ORDERED: ONDANSETRON 4 MG/2 ML (SDV) Z0FRAN ONE (10:41)
[2018-06-13] MEDS ORDERED: MIDAZOLAM 2 MG/2 ML (VERSED) VIAL ONE (11:06)
[2018-06-13] MEDS ORDERED: fentaNYL INJECTION 100 MCG/2 ML AMP ONE ×2 (11:06→12:25)
[2018-06-13] MEDS ORDERED: SEVOFLURANE (ULTANE) 15 ML INHAL SOLN ONE ×2 (11:10→12:27)
[2018-06-13] MEDS ORDERED: GLYCOPYRROLATE 0.2 MG/ML (ROBINUL) 2 ML VIAL ONE (12:12)
[2018-06-13] MEDS ORDERED: NEOSTIGMINE 1 MG/ML 5 ML SYRINGE ONE (12:12)
--- NOTE | 2018-06-13 12:43 | Progress Note-Post Operative ---
Post-Operative Progess Note Surgeon (s)/Criminal Lawyer (s) Surgeon CHING LI MD Criminal Lawyer: christin mac WALLPAPERER Pre-Operative Diagnosis Chronic Calculous cholecystitis Post-Operative Diagnosis same Procedure & Operative Findings Date of Procedure 06/13/18 Procedure Performed/Findings laparoscopic cholecystectomy Anesthesia Type GET Estimated Blood Loss Estimated blood loss (mL): minimal Specimens/Packing Specimens Removed gallbladder CHING LI MD Jun 13, 2018 12:43
[2018-06-13] MEDS ORDERED: morphine INJ 10 MG/ML 1ML (SYR OR VIAL) IVP ONE (13:00)
[2018-06-13] MEDS ORDERED: MEPERIDINE (DEMEROL) INJ 50 MG/ML IVP ONE (13:00)
[2018-06-13 14:00] VITALS: BP 140/79
--- NOTE | 2018-06-13 14:00 | NUR ---
TO AMB SURG FROM PAR PER CART. ALERT, RATES ABD PAIN 5. DERMABOND IN PLACE AT X3 LAP ABD SURGICAL SITES WITH ICE PACK ON. SCANT AMOUNT OF LIGHT RED DRAINAGE AT UMBILICAL SITE REPORTED BY PAR RN AND NOTED ON ARRIVAL. PO FLUIDS AND CRACKERS PROVIDED.
[2018-06-13] MEDS ORDERED: HYDROcodone/APAP 5 MG/325 MG (LORTAB) TAB ONE (14:11)
--- NOTE | 2018-06-13 14:18 | NUR ---
LORTAB 5/325 MG, ONE TAB, GIVEN PO.
[2018-06-13 14:30] VITALS: BP 132/76
--- NOTE | 2018-06-13 14:40 | Anesthesia-General Post-Op ---
General Patient Condition Mental Status/LOC: Same as Preop Cardiovascular: Satisfactory Nausea/Vomiting: Absent Respiratory: Satisfactory Pain: Controlled Complications: Absent Post Op Complications Complications None Follow Up Care/Instructions Patient Instructions None needed. Anesthesia/Patient Condition Patient Condition Patient is doing well, no complaints, stable vital signs, no apparent adverse anesthesia problems. No complications reported per nursing. LAUREL LIPSCOMB CRNA Jun 13, 2018 14:40
[2018-06-13 15:15] VITALS: BP 135/73
--- NOTE | 2018-06-13 15:15 | NUR ---
HAS BEEN UP TO BR WITH ASSIST, GAIT STEADY. VOIDS WITHOUT PROBLEM. NO FURTHER DRAINAGE FROM LAP UMBILICAL SITE. PAIN RATED 2. STATES SHE IS READY FOR DISMISSAL.
[2018-06-13 15:34] VITALS: BP 135/73
--- NOTE | 2018-06-13 21:50 | OPERATIVE REPORT ---
DATE OF SERVICE: 06/13/2018 ATTENDING PRIMARY CARE PHYSICIAN: Dr. Mcguire. PREOPERATIVE DIAGNOSIS: Symptomatic chronic calculous cholecystitis. POSTOPERATIVE DIAGNOSIS: Symptomatic chronic calculous cholecystitis. PROCEDURE: Laparoscopic cholecystectomy. SURGEON: Ching Li MD ANESTHESIA: General endotracheal. ESTIMATED BLOOD LOSS: Minimal. FINDINGS: Omental adhesions towards the anterior abdominal wall. Three large gallstones. DISPOSITION: The patient tolerated the procedure well. INDICATIONS: The patient is a 57-year-old female who has had intermittent episodes of pain in the right upper abdominal quadrant usually after a meal. She also reports associated nausea and vomiting with radiation of pain towards the back and shoulder. She states that her symptoms have been on an intermittent basis for the past several years; however, in the past several months has become much more severe and frequent. An ultrasound was performed, which did show gallstones. DESCRIPTION OF PROCEDURE: The patient was brought to the operating room, laid supine on the table. After adequate IV pain and sedative medications and general endotracheal intubation, the abdomen was prepped and draped in standard surgical fashion. The left upper abdominal quadrant was then anesthetized using 0.5% Marcaine with epinephrine and a transverse skin incision made using a 15 blade. An 0 silk suture was applied to the medial aspect incision for retraction and a Veress needle inserted with a low opening pressure of 0 mmHg and the abdomen was then insufflated to 15 mmHg pressure. The Veress needle removed and a 5 mm Xcel trocar placed followed by a 5 mm 45-degree angle laparoscope visualizing the peritoneal cavity. A 4-quadrant abdominal exploration was performed. There were omental adhesions towards the anterior abdominal wall, mostly in the right lower abdominal quadrant from a previous laparotomy incision. There was mild liver steatosis. Under direct visualization, we then proceed to place a supraumbilical 10 mm port after the skin and peritoneal lining were anesthetized using 0.5% Marcaine with epinephrine and a transverse skin incision made using 15 blade. In a similar manner, a right upper abdominal quadrant 5 mm port was placed. The patient was then placed in reverse Trendelenburg position as well as plane right side up, left side down. The fundus of the gallbladder was then retracted anteriorly and superiorly. The omental adhesions on the body of the gallbladder were then taken down using electrocautery and hook instrument. The hepatoduodenal ligament was then opened using cautery as well as blunt dissection using the hook instrument. The entire critical view of safety was identified including the triangle of Calot as well as the cystic duct and artery as the only two structures going into the gallbladder as well as the cystic plate behind the proximal gallbladder. A timeout was then taken and the cystic duct and artery were then clipped proximally, distally and cut with EndoShears. The gallbladder was then dissected off the liver bed using cautery on the hook instrument with visualization of good hemostasis as well as no leaking ducts of Luschka. The gallbladder was then removed through the 10 mm port site using EndoCatch bag. The 10 mm port site fascia and peritoneum were then closed under direct visualization using Lio-Casi device and 0 Vicryl suture. The abdomen was desufflated and the remaining ports removed. All skin incisions were closed using 4-0 Monocryl running subcuticular sutures. Wounds were then cleaned and covered with Dermabond. The patient tolerated procedure well. We will start IV and oral pain medications as well as a clear liquid diet. When she is tolerating clears, has good pain control with oral pain medications, ambulating well, we will discharge her home. She will be instructed to do no heavy lifting or exertion for the next two weeks. Job ID: [id number] DocumentID: [id number] Dictated Date: 06/13/2018 12:38:35 Geomagnetician Date: 06/13/2018 21:49:54 Dictated By: CHING LI MD
== END 2018-06-13 15:34 | disposition home or self-care (01) ==
LOC: SDC 09:29
PROVIDERS: ATTEND Surgery
DX: K80.10 Calculus of gallbladder with chronic cholecystitis without obstruction (principal); I10 Essential (primary) hypertension; G47.33 Obstructive sleep apnea (adult) (pediatric); G56.93 Unspecified mononeuropathy of bilateral upper limbs; E89.0 Postprocedural hypothyroidism; Z85.3 Personal history of malignant neoplasm of breast; Z79.899 Other long term (current) drug therapy
CPT/HCPCS: 87081; 94664

== ENCOUNTER → 2019-06-27 | Outpatient (CLI) | payer OTHER ==
[~2019-06-27] MED LIST changes: +HYDR-34 PO
--- NOTE | 2019-06-27 11:14 | Diagnostic Imaging Report ---
PROCEDURE: MR imaging cervical spine without contrast. TECHNIQUE: Multiplanar, multisequence MR imaging of the cervical spine was performed without contrast. INDICATION: Increasing neck pain and left arm pain and numbness. Patient has had prior cervical spine surgery 5 years ago. COMPARISON: No prior studies are available for comparison. FINDINGS: Curvature and alignment of the cervical spine is normal. There are postoperative changes of ACDF with anterior plate and screws transfixing the C5-C6 level. Hardware does produce some mild artifact. Vertebral body marrow signal appears unremarkable. The cervical spinal cord shows homogeneous signal intensity and normal morphology. Craniocervical junction is unremarkable. Fairly normal height and signal intensity to the cervical intervertebral discs is seen. C2-C3: No central canal or neural foraminal stenosis is detected. C3-C4: No central canal or neural foraminal stenosis is identified. C4-C5: Central canal is patent. There may be very mild narrowing of the right neural foramen due to uncovertebral joint degenerative change. Left neural foramen is patent. C5-C6: Central canal and neural foramina are patent. C6-C7: Broad-based disc/osteophyte complex indents the ventral thecal sac. Central canal is patent but there is fairly significant neural foraminal narrowing bilaterally due to uncovertebral joint degenerative change. C7-T1: Central canal and neural foramina are widely patent. Paraspinous tissues are unremarkable. IMPRESSION: 1. Postop changes C5-C6 ACDF. 2. Degenerative disc disease C6-C7 level with significant bilateral neural foraminal stenosis. There is also very mild right neural foraminal narrowing at C4-C5 level, as described. Dictated by: Dictated on workstation # [id number]
== END ==
LOC: RAD 09:54
PROVIDERS: ATTEND Physician Assistant
DX: M50.323 Other cervical disc degeneration at C6-C7 level (principal); M48.02 Spinal stenosis, cervical region; Z98.1 Arthrodesis status
CPT/HCPCS: 72141

== ENCOUNTER → 2019-06-29 | Outpatient (CLI) | payer OTHER ==
--- NOTE | 2019-06-29 08:58 | Diagnostic Imaging Report ---
INDICATION: Back pain with left arm pain and numbness. TECHNIQUE: Multiplanar, multisequence imaging of the thoracic spine was performed without contrast. FINDINGS: The curvature and alignment of the thoracic spine are normal. The vertebral body heights are maintained. No acute compression fracture is seen. 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 There is a midline disc bulge at the T8-9 level indenting the ventral thecal sac and producing some indentation upon the thoracic spinal cord. No definite abnormal cord signal is seen. No significant narrowing of the spinal canal is identified. There is also a right para-midline disc bulge at the T10-11 level indenting the ventral thecal sac. This does narrow the right lateral recess. No significant neuroforaminal narrowing or central canal narrowing is seen. All other levels of the thoracic spine are unremarkable apart from some mild left lateral posterior bulging at the T12-L1 level which indents the ventral thecal sac. No significant resultant central canal or neuroforaminal narrowing is seen. The thoracic cord shows normal signal intensity and normal morphology. The paraspinous tissues are unremarkable. IMPRESSION: Disc bulging at the T8-T9, T10-T11, and T12-L1 levels, as described. No central canal stenosis is seen. There does appear to be right lateral recess narrowing at the T10-T11 level. Dictated by: Dictated on workstation # [id number]
--- NOTE | 2019-06-29 09:19 | Diagnostic Imaging Report ---
PROCEDURE: MRI lumbar spine. TECHNIQUE: Multiplanar, multisequence MRI of the lumbar spine was performed without contrast. INDICATION: Back pain with left arm pain and numbness. COMPARISON: No prior studies are available for comparison. FINDINGS: The curvature of the lumbar spine is normal. There is a transitional vertebra at the lumbosacral junction. There appears to be lumbarization of the S1 segment. Please see sagittal images for appropriate numbering. There is minimal retrolisthesis of L2 on L3. The vertebral body heights are maintained. No acute compression fracture is seen. 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 Generalized degenerative disc disease is seen with variable disc space narrowing and desiccation. The conus is unremarkable. L1-2: The central canal and neuroforamina are widely patent. L2-3: There is a broad-based disc/osteophyte complex narrowing the lateral recesses bilaterally. The central canal is patent. There is moderate bilateral neuroforaminal narrowing. L3-4: A broad-based disc/osteophyte complex indents the ventral thecal sac. There is moderate narrowing of the bilateral lateral recesses. The central canal is patent. There is moderate bilateral neuroforaminal stenosis. L4-5: A broad-based disc/osteophyte complex indents the ventral thecal sac. The central canal remains patent but there is significant bilateral lateral recess stenosis. There is also moderate bilateral neuroforaminal stenosis. L5-S1: A broad-based disc/osteophyte complex indents the ventral thecal sac. There is bgoi-fp-gozjcyjf central canal narrowing. There is significant bilateral lateral recess stenosis as well as moderate bilateral neuroforaminal stenosis. S1-2: A broad-based disc/osteophyte complex indents the ventral thecal sac. There is xfez-od-gowxalkw narrowing of the central canal. Moderate left neuroforaminal narrowing is also seen. IMPRESSION: Multilevel lumbar spondylosis with multilevel lateral recess and neuroforaminal stenosis. There is also canal narrowing at the L5-S1 and S1-2 levels. No acute compression fracture is seen. Dictated by: Dictated on workstation # [id number]
== END ==
LOC: RAD 07:35
PROVIDERS: ATTEND Physician Assistant
DX: M47.816 Spondylosis without myelopathy or radiculopathy, lumbar region (principal); M48.07 Spinal stenosis, lumbosacral region; M48.04 Spinal stenosis, thoracic region; M51.24 Other intervertebral disc displacement, thoracic region
CPT/HCPCS: 72146; 72148

== ENCOUNTER → 2019-10-26 | Outpatient (CLI) | payer OTHER ==
--- NOTE | 2019-10-26 09:03 | Diagnostic Imaging Report ---
INDICATION: Intermittent shortness of air and cough. Time of Exam 8:57 AM COMPARISON is made with prior chest from 03/21/2013. The heart size is normal. The pulmonary vascularity is unremarkable. The lungs are clear. No infiltrate, effusion or pneumothorax is detected. Postoperative changes in the lower cervical spine are noted. IMPRESSION: No acute cardiopulmonary process is detected. Dictated by: Dictated on workstation # [id number]
== END ==
LOC: RAD 08:26
PROVIDERS: ATTEND Registered Nurse
DX: R06.02 Shortness of breath (principal); R05 Cough; Z98.890 Other specified postprocedural states
CPT/HCPCS: 71046

== ENCOUNTER 2022-01-13 20:43 | Emergency (ER) | payer SELFPAY ==
[~2022-01-13] VITALS: Ht 167.7 cm; Wt 92.0 kg
[~2022-01-13 20:43] MED LIST changes: -LISI-552 PO; +LISI20TA26 PO; +SERT-414 PO; -SERT100T8 PO
--- NOTE | 2022-01-13 21:09 | ED General ---
General Chief Complaint: General Problems/Pain Stated Complaint: NEAR SYNCOPE Nursing Triage Note: PT ARRIVAL TO ER VIA [facility] WITH COMPLAINT OF NEAR SYNCOPAL EPISODE DURING PENTECOSTAL. PT STATES THAT SHE FELT FINE AND DURING THE SERMON SHE SUDDENLY FELT THAT SHE COULDNT FOCUS, WAS HARD TO BREATH AND FELT LIKE SHE WAS GOING TO PASS OUT. BLOOD PRESSURE ON SCENE WAS 80'S / 40'S. PATIENT ARRIVAL WITH IV IN LEFT HAND AND VITALS STABLE. PT STATES THAT SHE HAS HAD DIARRHEA THE LAST TWO DAYS. PATIENT OTHERWISE FEELS FINE. PT HAD THIS SAME ISSUE A COUPE YEARS AGO, BUT DIDN'T SEEK MEDICAL ATTENTION. Source of Information: Patient Exam Limitations: No Limitations History of Present Illness Date Seen by Provider: Jan 13, 2022 Time Seen by Provider: 21:09 Allergies and Home Medications Allergies Coded Allergies: No Known Drug Allergies (Unverified , 05/17/11) Patient Home Medication List Hydrocodone Bit/Acetaminophen (HYDROcodone/APAP 7.5/325 TAB) 1 Each Tablet, 1-2 TAB PO Q4H Prescribed by: ALTON BARRAGAN on 06/13/18 0939 Levothyroxine Sodium (Levothyroxine Sodium) 150 Mcg Tablet, 150 MCG PO DAILY, (Reported) Entered as Reported by: ALPHONSO JUÁREZ on 06/12/18 1158 Lisinopril (Lisinopril) Unknown Strength Tablet, 1 TAB PO DAILY, (Reported) Entered as Reported by: ALPHONSO JUÁREZ on 06/12/18 1158 Sertraline HCl (Sertraline HCl) 100 Mg Tablet, 100 MG PO DAILY, (Reported) Entered as Reported by: ALPHONSO JUÁREZ on 06/12/18 1158 Past Dtsxooo-Uhtzpv-Yglfso Hx Patient Social History Tobacco Use?: No Use of E-Cig and/or Vaping dev: No Substance use?: No Alcohol Use?: No Pt feels they are or have been: No Immunizations Up To Date Influenza Vaccine Up-to-Date: Yes; Up-to-Date Second COVID19 Vaccination Ac: UNKNOWN COVID19 Vaccine Compressor Operator: MODERNA Seasonal Allergies Seasonal Allergies: No Past Medical History Surgeries: Yes (BILAT MASTECTOMY, BREAST RECONSTRUCTION, NECK SX,PORT PLACEMENT AND REMOVAL) Appendectomy, Section, Hysterectomy, Thyroidectomy Respiratory: Yes Sleep Apnea Currently Using CPAP: Yes Cardiac: No (HX OF TACHYCARDIA) Neurological: No Genitourinary: No Gastrointestinal: Yes Gall Bladder Disease Musculoskeletal: Yes Fibromyalgia Endocrine: Yes (THYROIDECTOMY) HEENT: Yes Cataract Cancer: Yes Breast What Type of Treatment Did You: Chemotherapy, Surgical Intervention Psychosocial: Yes Depression Integumentary: No Blood Disorders: No Physical Exam Vital Signs Vital Signs - First Documented 01/13/22 20:46 Temp 36.7 Pulse 68 Resp 14 B/P (MAP) 146/82 (103) Pulse Ox 96 O2 Delivery Room Air Capillary Refill : Less Than 3 Seconds Height, Weight, BMI Height: 5'4.00" Weight: 196lbs. 0.0oz. 88.039524ar; 32.00 BMI Method: Progress/Results/Core Measures Suspected Sepsis SIRS Temperature: Pulse: 68 Respiratory Rate: 14 Laboratory Tests 01/13/22 20:50: White Blood Count 7.6 Blood Pressure 146 /82 Mean: 103 Laboratory Tests 01/13/22 20:50: Creatinine 0.98, INR Comment 0.9, Platelet Count 282, Total Bilirubin 0.8 Results/Orders Lab Results Laboratory Tests Test 01/13/22 20:50 01/13/22 21:04 Range/Units White Blood Count 7.6 4.3-11.0 10^3/uL Red Blood Count 4.33 3.80-5.11 10^6/uL Hemoglobin 12.4 11.5-16.0 g/dL Hematocrit 38 35-52 % Mean Corpuscular Volume 87 80-99 fL Mean Corpuscular Hemoglobin 29 25-34 pg Mean Corpuscular Hemoglobin Concent 33 32-36 g/dL Red Cell Distribution Width 13.0 10.0-14.5 % Platelet Count 282 130-400 10^3/uL Mean Platelet Volume 11.1 9.0-12.2 fL Immature Granulocyte % (Auto) 0 % Neutrophils (%) (Auto) 55 42-75 % Lymphocytes (%) (Auto) 33 12-44 % Monocytes (%) (Auto) 8 0-12 % Eosinophils (%) (Auto) 3 0-10 % Basophils (%) (Auto) 1 0-10 % Neutrophils # (Auto) 4.2 1.8-7.8 10^3/uL Lymphocytes # (Auto) 2.5 1.0-4.0 10^3/uL Monocytes # (Auto) 0.6 0.0-1.0 10^3/uL Eosinophils # (Auto) 0.3 0.0-0.3 10^3/uL Basophils # (Auto) 0.0 0.0-0.1 10^3/uL Immature Granulocyte # (Auto) 0.0 0.0-0.1 10^3/uL Erythrocyte Sedimentation Rate 11 0-30 MM/HR Prothrombin Time 13.0 12.2-14.7 SEC INR Comment 0.9 0.8-1.4 Activated Partial Thromboplast Time 32 24-35 SEC D-Dimer 0.45 0.00-0.49 UG/ML Sodium Level 141 135-145 MMOL/L Potassium Level 3.9 3.6-5.0 MMOL/L Chloride Level 104 98-107 MMOL/L Carbon Dioxide Level 23 21-32 MMOL/L Anion Gap 14 5-14 MMOL/L Blood Urea Nitrogen 16 7-18 MG/DL Creatinine 0.98 0.60-1.30 MG/DL Estimat Glomerular Filtration Rate 65 BUN/Creatinine Ratio 16 Glucose Level 108 H 70-105 MG/DL Calcium Level 9.4 8.5-10.1 MG/DL Corrected Calcium 9.2 8.5-10.1 MG/DL Magnesium Level 2.3 1.6-2.4 MG/DL Total Bilirubin 0.8 0.1-1.0 MG/DL Aspartate Amino Transf (AST/SGOT) 21 5-34 U/L Alanine Aminotransferase (ALT/SGPT) 17 0-55 U/L Alkaline Phosphatase 76 40-136 U/L Total Creatine Kinase 157 29-168 U/L Creatine Kinase MB 3.0 <6.6 NG/ML Myoglobin 69.7 10.0-92.0 NG/ML Troponin I < 0.028 <0.028 NG/ML C-Reactive Protein High Sensitivity 0.26 0.00-0.50 MG/DL B-Type Natriuretic Peptide 23.3 <100.0 PG/ML Total Protein 7.6 6.4-8.2 GM/DL Albumin 4.2 3.2-4.5 GM/DL Lipase 28 8-78 U/L Influenza Type A (RT-PCR) Not Detected Not Detecte Influenza Type B (RT-PCR) Not Detected Not Detecte SARS-CoV-2 RNA (RT-PCR) Not Detected Not Detecte My Orders Orders - KELSEY SALAS APRN Ekg Tracing (01/13/22 20:47) Cbc With Automated Diff (01/13/22 21:00) Magnesium (01/13/22 21:00) Chest 1 View, Ap/Pa Only (01/13/22 21:00) Ekg Tracing (01/13/22 21:00) Comprehensive Metabolic Panel (01/13/22 21:00) Myoglobin Serum (01/13/22 21:00) Protime With Inr (01/13/22 21:00) Partial Thromboplastin Time (01/13/22 21:00) O2 (01/13/22 21:00) Monitor-Rhythm Ecg Trace Only (01/13/22 21:00) Ed Iv/Invasive Line Start (01/13/22 21:00) Creatine Kinase (01/13/22 21:00) Creatine Kinase Mb (01/13/22 21:00) Lipase (01/13/22 21:00) Bnp Audra (01/13/22 21:00) Fibrin Degradation Products (01/13/22 21:00) Troponin I [place] (01/13/22 21:00) Hs C Reactive Protein (01/13/22 21:00) Erythrocyte Sedimentation Rate (01/13/22 21:00) Covid 19 Inhouse Test (01/13/22 21:00) Influenza A And B By Pcr (01/13/22 21:00) Thyroid Stimulating Hormone (01/13/22 22:54) Orthostatic Vital Signs (Adult (01/13/22 22:55) Vital Signs/I&O 01/13/22 01/13/22 20:46 22:56 Temp 36.7 Pulse 68 69 75 86 Resp 14 B/P (MAP) 146/82 (103) 131/83 (99) 141/82 (101) 141/100 (114) Pulse Ox 96 O2 Delivery Room Air Capillary Refill : Less Than 3 Seconds Blood Pressure Mean: 103 Departure Impression Primary Impression: Near syncope Disposition: 01 HOME, SELF-CARE Condition: Improved Departure-Patient Inst. Decision time for Depature: 23:06 Referrals: VIVIANE DODD MD (PCP) Primary Care Physician SUZANNE MACHADO (Family) Primary Care Physician Patient Instructions: Near Fainting (DC) Add. Discharge Instructions: Plan: 1. Follow up with your doctor next week. May benefit from longer surveillance system monitor and ultrasound of your carotid arteries. 2. Drink plenty of fluids to stay hydrated. 3. You can take Magnesium Glycinate 400mg by mouth 30-45 minutes before bedtime. 4. Return to ER if you have any new, concerning, or worsening symptoms. All discharge instructions reviewed with patient and/or family. Voiced understanding. KELSEY SALAS BUSINESS LAW PROFESSOR Jan 13, 2022 21:09
[2022-01-13 21:13] LABS: ALBUMIN 4.2 GM/DL (3.2-4.5); POTASSIUM 3.9 MMOL/L (3.6-5.0)
[2022-01-13 21:14] LABS: CALCIUM 9.4 MG/DL (8.5-10.1)
[2022-01-13 21:16] LABS: TOTAL PROTEIN 7.6 GM/DL (6.4-8.2)
[2022-01-13 21:17] LABS: BILIRUBIN,TOTAL 0.8 MG/DL (0.1-1.0)
[2022-01-13 21:19] LABS: CREATININE SERUM 0.98 MG/DL (0.60-1.30)
[2022-01-13 21:23] LABS: MAGNESIUM 2.3 MG/DL (1.6-2.4)
[2022-01-13 21:24] LABS: BASOPHILS % (AUTO) 1 % (0-10); EOSINOPHILS # (AUTO) 0.3 10^3/uL (0.0-0.3); EOSINOPHILS % (AUTO) 3 % (0-10); HEMATOCRIT 38 % (35-52); HEMOGLOBIN 12.4 g/dL (11.5-16.0); LYMPHOCYTES # (AUTO) 2.5 10^3/uL (1.0-4.0); LYMPHOCYTES % (AUTO) 33 % (12-44); MEAN CORPUSCULAR HEMOGLOBIN 29 pg (25-34); MEAN CORPUSCULAR HGB CONC 33 g/dL (32-36); MEAN CORPUSCULAR VOLUME 87 fL (80-99); MEAN PLATELET VOLUME 11.1 fL (9.0-12.2); MONOCYTES # (AUTO) 0.6 10^3/uL (0.0-1.0); MONOCYTES % (AUTO) 8 % (0-12); NEUTROPHILS # (AUTO) 4.2 10^3/uL (1.8-7.8); NEUTROPHILS % (AUTO) 55 % (42-75); PLATELET COUNT 282 10^3/uL (130-400); WHITE BLOOD COUNT 7.6 10^3/uL (4.3-11.0)
[2022-01-13 21:30] LABS: INR 0.9 (0.8-1.4)
--- NOTE | 2022-01-13 22:15 | Diagnostic Imaging Report ---
HISTORY: Chest pain TECHNIQUE: Frontal view of the chest COMPARISON: 10/26/2019 FINDINGS: Lung volumes are mildly large. No consolidation is seen. There is no pleural effusion or pneumothorax. The cardiac silhouette is stable in size. The right-sided neurostimulator is noted. Cervical spine fusion hardware is noted. IMPRESSION: 1. No acute pulmonary abnormality. Dictated by: Dictated on workstation # [id number]
[2022-01-13 22:56] VITALS: BP_SYST 131; BP_SYST 141; BP_DIAS 100; BP_DIAS 82; BP_DIAS 83
[2022-01-13 23:45] VITALS: BP 126/76
== END 2022-01-13 23:45 | disposition home or self-care (01) ==
LOC: EDUNIT# 20:43 → ER 20:44
DX: R55 Syncope and collapse (principal); G47.30 Sleep apnea, unspecified; Z99.89 Dependence on other enabling machines and devices; Z20.822 Contact with and (suspected) exposure to COVID-19
CPT/HCPCS: 36415; 71045; 80053; 82550; 82553; 83690; 83735; 83874; 83880; 84443; 84484; 85025; 85379; 85610; 85652; 85730; 86141; 87636; 93005; 93041